=== PATIENT | female | born 1995 | race Caucasian/White ===

== ENCOUNTER 2024-06-16 07:12 | Emergency (ER) | payer OTHER, SELFPAY ==
[2024-06-16] VITALS (8 sets, daily range): BP systolic 119–155; BP diastolic 68–105; PULSE 61–91; TEMP 36.7–37.1; O2SAT 99–100; BMI 38.5
--- NOTE | 2024-06-16 07:44 | ECG_ITS ---
[facility] Test Date: 2024-06-16 Pat Name: SHARIF ALVARADO Department: Room: - Gender: Female Rigger Chief: : 1995 Requested By: [id number] Order Number: [id number] Reading MD: ALEJANDRO LI Measurements Intervals Frannie Rate: 79 P: 33 CO: 154 QRS: 76 QRSD: 90 T: 42 QT: 394 QTc: 428 Interpretive Statements 1100 Sinus rhythm 1102 Sinus arrhythmia 9110 normal ECG No previous ECG available for comparison Electronically Signed On 06-16-2024 20:22:19 EDT by ALEJANDRO LI
--- NOTE | 2024-06-16 07:45 | CT_ITS ---
The [address] [address] Patient Name: SHARIF ALVARADO MRN: [facility]:[id number] date: 1995 Sex: F Assigned Patient Location: ER Current Patient Location: .[facility] Accession/Order Number: [id number] Exam Date: 06/16/2024 08:20 Report Date: 06/16/2024 09:14 At the request of: HANNAH NAZARIO Procedure: CT head/brain wo con CT head/brain wo con, 06/16/2024 8:20 AM EDT INDICATION: dizziness COMPARISON: There is no appropriate prior study for comparison. TECHNIQUE: Axial CT images of the brain from skull base to vertex, including portions of the face and sinuses, were obtained without contrast . Multiplanar reformatted images were generated and reviewed as needed. Dose reduction techniques were achieved by using automated exposure control and/or adjustment of mA and/or kV according to patient size and/or use of iterative reconstruction technique. FINDINGS: The cerebral sulci as well as ventricular system are appropriate for age. There is no intracranial mass, mass effect, midline shift, intra or extra-axial fluid collection or hemorrhage. The visualized portions of orbits, mastoid air cells as well as paranasal sinuses are unremarkable. There is no suspicious osteolytic or osteoblastic lesion. CT/CT head/brain wo con IMPRESSION: No acute intracranial process is noted. Electronically authenticated by: CHRIS HUI Date: 06/16/2024 09:14
--- NOTE | 2024-06-16 07:49 | ED_ITS ---
HPI - Dizziness General Chief Complaint: Dizziness Stated Complaint: DIZZINESS Time Seen by Provider: 06/16/24 07:34 Source: patient Mode of arrival: ambulance Limitations: no limitations History of Present Illness HPI Narrative: 28-year-old male presents for dizziness. Intermittently for the last week she has been having 15 to 20-minute episodes of lightheadedness and sometimes spinning. Generally happens when she is sitting down. She has had no fever or vomiting or abdominal pain. No diarrhea. No new medications. She is never experienced symptoms like this before. She does not complain of an earache or sore throat or chest pain or palpitations. Related Data Home Medications ?Medication ?Instructions ?Recorded ?Confirmed escitalopram oxalate 20 mg tablet 20 mg PO .once daily 06/16/24 06/16/24 Previous Rx's ?Medication ?Instructions ?Recorded meclizine 25 mg tablet 25 mg PO TID PRN dizziness #20 tabs 06/16/24 ondansetron 4 mg disintegrating 4 mg PO Q6H PRN nausea and 06/16/24 tablet vomiting #20 tabs Allergies Allergy/AdvReac Type Severity Reaction Status Date / Time No Known Drug Allergies Allergy Verified 06/16/24 07:29 Review of Systems ROS Narrative A ten point review of systems is negative except as noted above. [facility] Medical History (Updated 06/16/24 @ 09:23 by Bacilio Bain MD) Anxiety ?F41.9 - Anxiety disorder, unspecified (ICD-10) Anxiety ?F41.9 - Anxiety disorder, unspecified (ICD-10) Social History Little interest or pleasure in doing things: not at all Feeling down, depressed, or hopeless: not at all Exam Narrative Exam Narrative: Nurses note and vital signs reviewed and patient is not hypoxic. General: The patient appears well and in no apparent distress. Patient is resting comfortably on cart. Skin: Warm, dry, no pallor noted. There is no rash noted. Head: Normocephalic, atraumatic Eye: Normal conjunctiva, no drainage, EOMI. PERRL Ears, Nose, Mouth, and Throat: oral mucosa is moist. Nares patent. Cardiovascular: Regular Rate and Rhythm Respiratory: Patient is in no distress, no accessory muscle use, lungs are clear to auscultation, no wheezing, rales or rhonchi Back: non-tender GI: Soft and nontender Musculoskeletal: The patient has no evidence of calf tenderness, no pitting edema, symmetrical pulses noted bilaterally Neurological: Awake alert and fully oriented. Upper and lower extremity strength intact and symmetric. Psychiatric: Cooperative Constitutional Vital Signs, click to edit/add: Last Vital Signs Temp 98.7 F 06/16/24 07:20 Pulse 67 06/16/24 08:38 Resp 12 06/16/24 08:13 BP 124/78 06/16/24 08:38 Pulse Ox 99 06/16/24 08:38 O2 Del Method Room Air 06/16/24 07:20 Course Vital Signs Vital signs: Vital Signs Temperature 98.7 F 06/16/24 07:20 Pulse Rate 91 H 06/16/24 07:20 Respiratory Rate 18 06/16/24 07:20 Blood Pressure 155/105 H 06/16/24 07:20 Pulse Oximetry 99 06/16/24 07:20 Oxygen Delivery Method Room Air 06/16/24 07:20 Temperature 98.7 F 06/16/24 07:20 Pulse Rate 67 06/16/24 08:38 Respiratory Rate 12 06/16/24 08:13 Blood Pressure 124/78 06/16/24 08:38 Pulse Oximetry 99 06/16/24 08:38 Oxygen Delivery Method Room Air 06/16/24 07:20 MDM - Dizziness MDM Narrative Medical decision making narrative: Her workup including blood work and CT brain is negative. Should be discharged home on Antivert and Zofran and will follow-up with her physician if symptoms persist. Treatment diagnosis and follow-up were discussed with the patient. Differential Diagnosis Differential diagnosis: Likely adverse reaction to drug, benign paroxysmal positional vertigo and other (Dehydration, anemia, ) Lab Data Attestation: I reviewed the patient's lab results. Labs: Lab Results 06/16/24 06/16/24 Range/Units 07:25 07:45 WBC 5.7 (4.0-11.0) 10^3/uL RBC 5.11 (4.20-5.40) 10^6/uL Hgb 13.6 (12.0-16.0) g/dL Hct 41.9 (36.0-48.0) % MCV 82.0 (81.0-99.0) fL MCH 26.6 L (26.7-34.0) pg MCHC 32.5 (29.9-35.2) g/dL RDW 12.7 (11.0-15.0) % Plt Count 249 (150-450) 10^3/uL MPV 10.6 (9.5-13.5) fL Neut % (Auto) 61.4 (43.0-75.0) % Lymph % (Auto) 29.0 (20.5-60.0) % [place] % (Auto) 7.6 (1.7-12.0) % Eos % (Auto) 1.4 (0.9-7.0) % Baso % (Auto) 0.4 (0.2-2.0) % Neut # (Auto) 3.5 (1.4-6.5) 10^3/uL Lymph # (Auto) 1.6 (1.2-3.8) 10^3/uL [place] # (Auto) 0.4 (0.3-0.8) 10^3/uL Eos # (Auto) 0.1 (0.0-0.7) 10^3/uL Baso # (Auto) 0.0 (0.0-0.1) 10^3/uL Abs Immat Gran (auto) 0.01 (0.00-0.03) 10^3/uL Imm/Tot Granulo (auto) 0.2 (0.0-0.5) % Sodium 140 (136-145) mmol/L Potassium 3.8 (3.5-5.1) mmol/L Chloride 105 (98-107) mmol/L Carbon Dioxide 24.2 (21.0-32.0) mmol/L Anion Gap 14.6 BUN 10.0 (7.0-18.0) mg/dL Creatinine 0.76 (0.55-1.02) mg/dL Est GFR ( Amer) >60 (>=60) Est GFR (Non-Af Amer) >60 (>=60) BUN/Creatinine Ratio 13.2 Glucose 96 (74-106) mg/dL Calcium 8.7 (8.5-10.1) mg/dL Serum HCG, Qual Negative (NEGATIVE) Urine Color Lt. yellow (YELLOW) Urine Clarity Clear (CLEAR) Urine pH 6.0 (5.0-9.0) Ur Specific [place] 1.020 (1.005-1.025) Urine Protein Negative (NEG/TRACE) mg/dL Urine Glucose (UA) Negative (NEGATIVE) mg/dL Urine Ketones Negative (NEGATIVE) mg/dL Urine Occult Blood Large A (NEGATIVE) Urine Nitrite Negative (NEGATIVE) Urine Bilirubin Negative (NEGATIVE) Urine Urobilinogen 0.2 (0.2-1.0) EU/dL Ur Leukocyte Esterase Trace A (NEGATIVE) Urine RBC 10-20 A (0-2) #/HPF Urine WBC 2-5 A (NONE SEEN) #/HPF Ur Squamous Epith Cells Moderate A (NONE/RARE) #/LPF Urine Crystals None seen (None Seen) #/HPF Urine Bacteria Small A (NONE SEEN) #/HPF Urine Casts None seen (NONE SEEN) #/LPF Urine Mucus Trace A (NONE SEEN) Ur Culture Indicated? Yes Imaging Data CT scan - head: Radiologist's impression: ITS Impressions Head CT 06/16/24 07:45 IMPRESSION: No acute intracranial process is noted. Electronically authenticated by: CHRIS HUI Date: 06/16/2024 09:14 ECG Data Attestation: I personally reviewed and interpreted this ECG as follows: (EKG on my interpretation shows normal sinus rhythm with rate of 79 and no acute change.) Discharge Plan Discharge Chief Complaint: Dizziness Clinical Impression: Dizziness Patient Disposition: Home, Self-Care Time of Disposition Decision: 09:23 Condition: Good Mode of Transportation: Private Vehicle Prescriptions / Home Meds: New ondansetron 4 mg tablet,disintegrating 4 mg PO Q6H PRN (Reason: nausea and vomiting) Qty: 20 0RF meclizine 25 mg tablet 25 mg PO TID PRN (Reason: dizziness) Qty: 20 0RF No Action escitalopram oxalate 20 mg tablet 20 mg PO .once daily Print Language: Romansh Instructions: Dizziness (ED) Referrals: Physician,Non-Staff, MD [Physician] - 1 week
[2024-06-16] MEDS: 0.9 % SODIUM CHLORIDE 1,000 ML 999 ML IV (07:55)
[2024-06-16 07:59] LABS: Basophils Percent Auto 0.4 % (0.2-2.0); Eosinophils Absolute Auto 0.1 10^3/uL (0.0-0.7); Eosinophils Percent Auto 1.4 % (0.9-7.0); Hematocrit 41.9 % (36.0-48.0); Hemoglobin 13.6 g/dL (12.0-16.0); Immature Granulocytes Abs Auto 0.01 10^3/uL (0.00-0.03); Immature Granulocytes Pct Auto 0.2 % (0.0-0.5); Lymphocytes Absolute Auto 1.6 10^3/uL (1.2-3.8); Mean Corpuscular HGB Conc 32.5 g/dL (29.9-35.2); Mean Corpuscular Hemoglobin 26.6 pg (26.7-34.0); Mean Platelet Volume 10.6 fL (9.5-13.5); Monocytes Absolute Auto 0.4 10^3/uL (0.3-0.8); Monocytes Percent Auto 7.6 % (1.7-12.0); Neutrophils Absolute Auto 3.5 10^3/uL (1.4-6.5); Neutrophils Percent Auto 61.4 % (43.0-75.0); Platelet Count 249 10^3/uL (150-450); Red Blood Count 5.11 10^6/uL (4.20-5.40); Red Cell Distribution Width 12.7 % (11.0-15.0); White Blood Count 5.7 10^3/uL (4.0-11.0)
[2024-06-16 07:59] LABS: Bilirubin Urine NEGATIVE (NEGATIVE); Blood Urine LARGE (NEGATIVE); Clarity Urine CLEAR (CLEAR); Color Urine LT. YELLOW (YELLOW); Glucose Urine UA NEGATIVE (NEGATIVE); Ketones Urine NEGATIVE (NEGATIVE); Leukocyte Esterase Urine TRACE (NEGATIVE); Nitrite Urine NEGATIVE (NEGATIVE); Protein Urine NEGATIVE (NEG/TRACE); Urobilinogen Urine 0.2 EU/dL (0.2-1.0)
[2024-06-16 08:04] LABS: Urine Microscopic Indicated YES
[2024-06-16 08:07] LABS: Bacteria Urine SMALL #/HPF (NONE SEEN); Cast Seen? NONE SEEN #/LPF (NONE SEEN); Crystals Seen? None Seen #/HPF (None Seen); Mucus Urine TRACE (NONE SEEN); Squamous Epithelial Cell Urine MODERATE #/LPF (NONE/RARE); Urine Culture Indicated YES
[2024-06-16 08:10] LABS: HCG Qualitative NEGATIVE (NEGATIVE); Internal Control Within Normal Limits
[2024-06-16 08:11] LABS: BUN Creatinine Ratio 13.2; Calcium 8.7 mg/dL (8.5-10.1); Chloride 105 mmol/L (98-107); Estimated GFR (African America >60 (>=60); Estimated GFR (Non-African Ame >60 (>=60); Glucose 96 mg/dL (74-106); Potassium 3.8 mmol/L (3.5-5.1); Sodium 140 mmol/L (136-145)
[2024-06-16 08:25] LABS: Anion Gap 14.6; Carbon Dioxide 24.2 mmol/L (21.0-32.0)
[2024-06-16] MEDS: ONDANSETRON PF 4 MG/2 ML VIAL IV (09:07)
== END 2024-06-16 09:29 | disposition home or self-care (01) ==
PROVIDERS: Emergency Provider Emergency Medicine
DX: R42 Dizziness and giddiness (principal)
CPT/HCPCS: 36415; 70450; 80048; 81001; 84703; 85025; 87086; 87150; 93005; 96361; 96374; 99285; J2405

== ENCOUNTER 2024-10-06 20:05 | Outpatient (REF) | payer OTHER, SELFPAY ==
--- OUTSIDE RECORDS SUMMARY | 2024-10-06 20:11 | XMS_ITS | CCD ---
Author Organization [facility] Care Team Providers Care [place] Name Role Phone DR EVE BARTON Primary Care Unavailable JONATHAN, DR LAWRENCE Consulting Unavailable JONATHAN, DR LAWRENCE Attending Unavailable JONATHAN, DR LAWRENCE Admitting Unavailable JONATHAN, DR LAWRENCE Admitting Unavailable JONATHAN, DR LAWRENCE Consulting Unavailable JONATHAN, DR LAWRENCE Attending Unavailable ALICE, DR SCHAEFER Primary Care Unavailable MISC, DR SOTOMAYOR Attending Unavailable MISC, DR SOTOMAYOR Admitting Unavailable MISC, DR SOTOMAYOR Consulting Unavailable HIGHLANDER, FAHAD Attending Unavailable REQUEST, DR RODRIGUEZ LISTED Primary Care Unavaila ble ZIEBER, DR PREETHI Lindquist Consulting Unavailable HIGHLANDER, FAHAD Admitting Unavailable HIGHLANDER, FAHAD Consulting Unavailable REQUEST, DR RODRIGEUZ LISTED Primary Care Unavaila ble JONATHAN, DR LAWRENCE Consulting Unavailable JONATHAN, DR LAWRENCE Attending Unavailable JONATHAN, DR LAWRENCE Admitting Unavailable ZIEBER, DR PREETHI Lindquist Consulting Unavailable JONATHAN, DR LAWRENCE Consulting Unavailable JONATHAN, DR LAWRENCE Attending Unavailable JONATHAN, DR LAWRENCE Primary Care Unavailable JONATHAN, DR LAWRENCE Admitting Unavailable Marin Bates Consulting Unavailable REQUEST, DR RODRIGUEZ LISTED Primary Care Unavaila ble JONATHAN, DR LAWRENCE Attending Unavailable JONATHAN, DR LAWRENCE Admitting Unavailable JONATHAN, DR LAWRENCE Primary Care Unavailable JONATHAN, DR LAWRENCE Consulting Unavailable JONATHAN, DR LAWRENCE Attending Unavailable JONATHAN, DR LAWRENCE Admitting Unavailable FAISAL LAMBERT Consulting Unavailable Mona Cueva Unavailable MD Eve Barton Primary Care Provider HARLAN Cueva Attending Provider Willie Jacobs Unavailable MD Eve Barton Primary Care Provider HARLAN Lebron Emergency Provider DO Willie Jacobs Primary Care Provider DO Willie Jacobs Attending Provider [phone] Syeda Maldonado Unavailable Autumn Carreon Unavailable DO Willie Jacobs Primary Care Provider GREG Carreon Attending Provider DO Willie Jacobs Attending Provider [phone] DO Thalia Brasher Primary Care Provider [phone] GREG Velasquez Attending Provider [phone] Willie Jacobs Primary Care Unavailable Autumn Carreon Admitting Unavailable Autumn Carreon Attending Unavailable Vahe Velasquez Admitting Unavailable Vahe Velasquez Attending Unavailable Thalia Brasher Primary Care Unavailable Willie Jacobs Admitting Unavailable Willie Jacobs Primary Care Unavailable Willie Jacobs Attending Unavailable ZION SALAZAR Attending Unavailable Eve Barton MD Primary Care Provider Medications Current Medications Medication Drug Class(es) Dates Sig (Normalized) Sig (Original) azithromycin 250 mg oral tablet (2 sources) Macrolide Antimicrobial Start: 08-20-2024 azithromycin (Zithromax) 250 MG tablet Indications: Acute bronchitis, unspecified organism Take 2 tabs (500 mg) by mouth today, than 1 tab (250 mg) daily for 4 days. 6 tablet 08/20/2024 Active benzonatate 100 mg oral capsule (2 sources) Non-narcotic Antitussive Start: 08-20-2024 take 1 capsule by mouth three times daily as needed for cough benzonatate (Tessalon Perles) 100 MG capsule Indications: Acute bronchitis, unspecified organism Take 1 capsule (100 mg) by mouth 3 (three) times a day as needed for cough Do not crush or chew. 21 capsule 08/20/2024 Active escitalopram 20 mg oral tablet (20 sources) Serotonin Reuptake Inhibitor Start: 04-27-2023 End: 04-14-2024 take 1 tablet by mouth in the morning escitalopram (Lexapro) 20 MG tablet Indications: Anxiety Take 1 tablet (20 mg) by mouth in the morning. 90 tablet 3 04/27/2023 Active Magnesium (6 sources) take 1 tablet by mouth once daily Magnesium 250 MG 1 tablet with a meal Orally Once a day Active naproxen 375 mg oral tablet (8 sources) Nonsteroidal Anti-inflammatory Drug Start: 12-04-2023 take 375 mg by mouth twice daily Naproxen Active 375 MG PO Twice daily December 04, 2023 1:00am nitrofurantoin, macrocrystals 25 mg / nitrofurantoin, monohydrate 75 mg oral capsule (1 source) Nitrofuran Antibacterial Start: 08-15-2022 take 1 capsule by mouth every twelve hours Macrobid 100 MG 1 capsule with food Orally every 12 hrs for 7 day(s) Jul, Active phentermine hydrochloride 15 mg oral capsule (7 sources) Sympathomimetic Amine Anorectic Start: 07-06-2023 take 1 capsule by mouth every twenty-four hours Phentermine HCl 15 MG 1 capsule Orally Once a day for 30 days Jun, Active Start: 05-27-2023 take 1 capsule by mo uth every twenty-four hours Phentermine HCl 15 MG 1 capsule Orally Once a day for 30 days Apr, Active Vitamin D3 (4 sources) Vitamin D3 Activ e Completed/Discontinued Medications Medication Drug Class(es) Dates Sig (Normalized) Sig (Original) amoxicillin 875 mg / clavulanate 125 mg oral tablet (8 sources) Penicillin-class Antibacterial Start: 02-01-2024 End: 03-28-2024 take 1 tablet by mouth twice daily Amoxicillin-Pot Clavulanate Discontinued 1 TAB PO Twice daily February 01, 2024 12:00am March 28, 2024 4:21pm 24 hr buPROPion hydrochloride 150 mg extended release oral tablet (5 sources) Aminoketone Start: 05-27-2024 End: 06-17-2024 take 1 tablet by mouth once daily in the morning Bupropion Hcl (Wellbutrin Xl) 150 mg tablet extended release 24 hr Discontinued 150 MG PO Every morning May 27, 2024 12:00am June 17, 2024 7:59am buPROPion HCl 10 0 MG Oral for 90 Not-Taking cholecalciferol 0.05 mg oral capsule (8 sources) Vitamin D Start: 12-04-2023 End: 03-28-2024 take 50 ug by mouth once daily Cholecalciferol (Vitamin D3) Discontinued 50 MCG PO Daily December 04, 2023 1:00am March 28, 2024 4:21pm 3 ml liraglutide 6 mg/ml pen injector (16 sources) GLP-1 Receptor Agonist Start: 12-04-2023 End: 02-01-2024 Liraglutide (Victoza 2-Marques) 0.6 mg/0.1 mL (18 mg/3 mL) pen injector Discontinued MG SUBCUT December 04, 2023 1:00am February 01, 2024 9:49am FreeTextSig: Week one- 0.6mg daily, Week two- 1.2mg daily, Week three thereafter- 1.8mg daily Subcutaneous Daily; Note: Source Status: Not-Taking\PRN; Refills: 1; Qty: 6 Milliliter; Provider: Velma Leyva Start: 05-25-2023 Victoza 18 MG/ 3ML Week one- 0.6mg daily, Week two- 1.2mg daily, Week three thereafter- 1.8mg daily Subcutaneous Daily for 30 days Apr, Not-Taking/PRN magnesium oxide 250 mg oral tablet (8 sources) Start: 12-04-2023 End: 02-01-2024 take 1 tablet by mouth once daily Magnesium Oxide Discontinued 250 MG PO Daily December 04, 2023 1:00am February 01, 2024 9:49am FreeTextSi tablet with a meal Orally Once a day; Note: Source Status: Taking; Provider: Velma Leyva ( ) 24 hr metFORMIN hydrochloride 500 mg extended release oral tablet (18 sources) Biguanide Start: 12-04-2023 End: 03-28-2024 take 2 tablets by mouth once daily Metformin Discontinued 500 MG PO Daily December 04, 2023 1:00am March 28, 2024 4:21pm FreeTextSi tablets with a meal Orally Once a day; Note: Source Status: Refill; Refills: 1; Provider: Velma Leyva Start: 04-27-2023 take 1 tablet by beth th every week at dinner, then take 2 tablets by mouth once daily metFORMIN HCl ER 500 MG 1 tablet with evening meal 1st week, then 2 tablets with a meal Orally Once a day for 30 days Mar, Active take 2 tablets by [facility] every twenty-four hours metFORMIN HCl ER 500 MG 2 tablets with a meal Orally Once a day for 90 days Responding to faxed request for 90 day supply Active nystatin [id number] unt/ml topical cream (10 sources) Polyene Antifungal Start: 03-28-2024 End: 05-27-2024 Nystatin Discontinued 1 APPLIC TOPICAL Three times daily 60 March 28, 2024 12:00am May 27, 2024 7:12am Start: 03-28-2024 End: 05-27-2024 Nystatin Discontinued 1 APPL IC TOPICAL Three times daily 60 March 28, 2024 12:00am May 27, 2024 7:12am PARoxetine hydrochloride 40 mg oral tablet (1 source) Serotonin Reuptake Inhibitor take 1 tablet by mouth once daily in the morning PARoxetine HCl 40 MG take 1 tablet by mouth every morning Oral for 30 Not-Taking promethazine hydrochloride 25 mg oral tablet (8 sources) Phenothiazine Start: 12-04-19 End: 05-27-20 take 25 mg by mouth twice daily Promethazine Discontinued 25 MG PO Twice daily December 04, 2023 1:00am May 27, 2024 7:13am topiramate 50 mg oral tablet (20 sources) Start: 12-04-19 End: 12-04-19 Topiramate Discontinued 50 MG PO December 04, 2023 1:00am December 04, 2023 10:57am FreeTextSig: Half tablet once daily for 7 days then increase to one tablet daily Orally Once a day; Note: Source Status: StartPlease dispense brand and amount as allowed by insurance.; Refills: 2; Qty: 30 Tablet; Provider: Velma Leyva Start: 12-04-2023 End: 02-01-2024 take 25 mg by mouth once daily Topiramate Discontinued 25 MG PO Daily December 04, 2023 1:00am December 04, 2023 10:57am Start: 08-17-2023 Topiramate 50 MG Half tablet once daily for 7 days then increase to one tablet daily Orally Once a day for 30 days Please dispense brand and amount as allowed by insurance. Jul, Active Start: 07-06-2023 take 1 capsule by [facility] every twenty-four hours Topiramate ER 25 MG 1 capsule Orally Once a day for 30 days Jun, Not-Taking/PRN Problems Active Problems Problem Classification Problem Date Documented Date Episodic/Chronic Acute bronchitis (2 sources) Acute bronchitis; Translations: [Acute bronchitis, unspecified] 08-20-2024 Episodic Anxiety disorders (20 sources) Anxiety disorder, unspecified; Translations: [Anxiety] Onset: 11-13-2020 Chronic Conditions associated with dizziness or vertigo (4 sources) Dizziness and giddiness; Translations: [Dizziness and giddiness] Onset: 06-17-2024 06-17-2024 Episodic Diabetes mellitus without complication (20 sources) Impaired fasting glycemia; Translations: [Impaired fasting glucose] Onset: 09-25-2023 Episodic Esophageal disorders (19 sources) Gastroesophageal reflux disease; Translations: [Gastro-esophageal reflux disease without esophagitis] Onset: 09-25-2023 Chronic Genitourinary symptoms and ill-defined conditions (1 source) Dysuria Episodic Headache; including migraine (20 sources) Migraine; Translations: [Migraine, unspecified, not intractable, without status migrainosus] Onset: 09-25-2023 Chronic Malaise and fatigue (19 sources) Fatigue; Translations: [Chronic fatigue, unspecified] Onset: 09-25-2023 Chronic Malaise and fatigue (4 sources) Other fatigue; Translations: [Other malaise and fatigue] Onset: 06-17-2024 06-17-2024 Episodic Menstrual disorders (5 sources) Excessive and frequent menstruation with regular cycle; Translations: [EXCESS FREQ MENSTRUATION W/REG CYCL] Onset: 11-07-2020 Chronic Mood disorders (20 sources) Major depressive disorder, single episode, unspecified; Translations: [Depression] Onset: 09-25-2023 Chronic Mycoses (9 sources) Candidiasis of skin; Translations: [Candidiasis of skin and nail] 03-28-2024 Episodic Other connective tissue disease (4 sources) Pain in right foot; Translations: [PAIN IN RIGHT FOOT] Onset: 05-09-2021 Episodic Other connective tissue disease (1 source) Pain in left foot; Translations: [PAIN IN LEFT FOOT] Onset: 05-27-2021 Episodic Other nutritional; endocrine; and metabolic disorders (13 sources) Body mass index 30+ - obesity; Translations: [Body mass index (BMI) 37.0-37.9, adult] Chronic Other nutritional; endocrine; and metabolic disorders (2 sources) Body mass index (BMI) 37.0-37.9, adult Chronic Other nutritional; endocrine; and metabolic disorders (11 sources) Obesity; Translations: [Obesity, unspecified] Chronic Other nutritional; endocrine; and metabolic disorders (6 sources) Obesity, unspecified; Translations: [Obesity, unspecified] Onset: 09-25-2023 Chronic Other skin disorders (10 sources) Acanthosis nigricans; Translations: [Acanthosis nigricans] Episodic Other upper respiratory infections (4 sources) Acute maxillary sinusitis, unspecified; Translations: [Acute maxillary sinusitis] 02-01-2024 Episodic Otitis media and related conditions (6 sources) Otitis media, unspecified, right ear; Translations: [Unspecified otitis media] 02-01-2024 Episodic Superficial injury; contusion (5 sources) Contusion of nose; Translations: [Contusion of nose, initial encounter] 01-26-2023 Episodic Unclassified (1 source) CONTACT W/AND (SUSP) EXPOS COVID-19; Translations: [CONTACT W/AND (SUSP) EXPOS COVID-19] Onset: 11-07-2020 Unclassified (7 sources) Well adult; Translations: [Healthy adult] 05-27-2024 Urinary tract infections (1 source) Acute cystitis with hematuria Episodic Past or Other Problems Problem Classification Problem Date Documented Date Episodic/Chronic Administrative/social admission (5 sources) Persons encountering health services in other specified circumstances; Translations: [Dietary counseling and surveillance] Onset: 09-25-2023 Episodic Coma; stupor; and brain damage (15 sources) Excessive daytime sleepiness - normal night sleep; Translations: [Somnolence] Onset: 09-25-2023 Episodic Contraceptive and procreative management (1 source) Tubal ligation status; Translations: [TUBAL LIGATION STATUS] Onset: 11-13-2020 Episodic Immunizations and screening for infectious disease (5 sources) Encounter for screening for human papillomavirus (HPV); Translations: [Contact with and (suspected) exposure to other viral communicable diseases] Onset: 07-02-2020 Episodic Other lower respiratory disease (1 source) Cough; Translations: [COUGH] Onset: 11-13-2020 Episodic Other lower respiratory disease (1 source) Wheezing; Translations: [WHEEZING] Onset: 11-07-2020 Episodic Other skin disorders (5 sources) Acanthosis nigricans; Translations: [Acanthosis nigricans] Onset: 09-25-2023 Episodic Results Test Name Value Interpretation Reference Range Facility Folate [Mass/volume] in Seru m or PlasmaOrdered By: Vahe Velasquez on 06-17-2024 Folate [Mass/Vol] ng/mL >5.9 [facility] Comment on above: Folate reference ran ge: >5.9 ng/mlThe WHO technical consultation on folate and vitamin [id number] has determined that folate concentrations lessthan 4 ng/ml are considered deficient. Iron [Mass/volume] in Serum or PlasmaOrdered By: Vahe Velasquez on 06-17-2024 Iron [Mass/Vol] 49 ug/dL Low 50-212 [facility] Comment on above: Order Comment: [email or web address] [email or web address] Performed By: #### V [id number], FE and TIBC, [id number], TSH3 wRFLX #### [facility] [address] Iron and TIBC Profileon 05-30 0-2023 % Iron Saturation 12.2 % Low 20-50 [facility] Comment on above: Order Comment: [email or web address] [email or web address] Performed By: #### V [id number], FE and TIBC, [id number], TSH3 wRFLX #### [facility] [address] [place] [address] [facility] Total Iron Binding Capacity 403 ug/dL Normal 255-450 [facility] Comment on above: Order Comment: [email or web address] [email or web address] Performed By: #### V [id number], FE and TIBC, [id number], TSH3 wRFLX #### [facility] [address] [place] [phone] [place] Iron binding capacity [Mass/ volume] in Serum or PlasmaOrdered By: Vahe Velasquez on 06-17-2024 Iron binding capacity [Mass/Vol] 403 ug/dL 255-450 [facility] Iron saturation [Mass Fracti on] in Serum or PlasmaOrdered By: Vahe Velasquez on 06-17-2024 Iron saturation [Mass fraction] 12.2 % Low 20-50 [facility] Thyroid Stim Hormone w/Rflxo n 06-17-2024 Thyroid Stim Hormone w/Rflx 1.18 u[iU]/mL Normal 0.45-5.33 [facility] Comment on above: Order Comment: [email or web address] [email or web address] Performed By: #### V [id number], FE and TIBC, [id number], TSH3 wRFLX #### [facility] [address] Thyrotropin [Units/volume] i n Serum or PlasmaOrdered By: Vahe Velasquez on 06-17-2024 TSH Qn 1.18 m[IU]/L 0.45-5.33 [facility] Transferrin [Mass/volume] in Serum or PlasmaOrdered By: Vahe Velasquez on 06-17-2024 Transferrin [Mass/Vol] 288 mg/dL 203-362 [facility] Comment on above: Order Comment: [email or web address] [email or web address] Performed By: #### V [id number], FE and TIBC, [id number], TSH3 wRFLX #### [facility] [address] [place] [address] Vit. B12/Folate Profileon Folate < 21.0 Normal >5.9 [facility] Comment on above: Order Comment: [email or web address] [email or web address] Result Comment: Madonna te reference range: >5.9 ng/ml The WHO technical consultation on folate and vitamin b12 deficiencies has determined that folate concentrations less than 4 ng/ml are considered deficient. Performed By: #### V [id number], FE and TIBC, [id number], TSH3 wRFLX #### [facility] [address] Vitamin B12 ser/plasOrdered By: Vahe Velasquez on 06-17-2024 Cobalamin (Vitamin B12) [Mass/Vol] 474 pg/mL 180-914 [facility] Comment on above: Order Comment: [email or web address] [email or web address] Performed By: #### V [id number], FE and TIBC, [id number], TSH3 wRFLX #### [facility] [address] [place] [address] [place] Vitamin D 25 Hydroxy Totalon 06-17-2024 Vitamin D 25 Hydroxy Total 22.6 ng/mL Low 30-100 [facility] Comment on above: Order Comment: [email or web address] Result Comment: ZOFIA MIN D STATUS 25(OH)VITAMIN D RANGE (ng/mL) Deficient <20 Insufficient 20 to <30 Sufficient 30 to 100 Reference: Ashley Plummer, Vernon SANTAMARIA et al. Evaluation,treatment, and prevention of vitamin D deficiency; an Endocrine Society clinical practice guideline. JCEM. 2010; 96(7):191-. PERFORMED BY: [place] [address] PATHOLOGIST SENIOR DATA INTEGRATION DEVELOPER VANESSA GUPTA M.D. Performed By: #### V [id number], FE and TIBC, [id number], TSH3 wRFLX #### [facility] [address] [place] [id number] [facility] Vitamin D+Metabolites [Mass/ volume] in Serum or PlasmaOrdered By: Vahe Velasquez on 06-17-2024 Vitamin D+Metabolites [Mass/Vol] 22.6 ng/mL Low 30-100 [facility] Comment on above: VITAMIN D STATUS 25( [place])VITAMIN D RANGE (ng/mL) Deficient <20 Insufficient 20 to <30Sufficient 30 to 100Reference: Ashley Plummer, Vernon SANTAMARIA et al. Evaluation,treatment, and prevention of vitamin D deficiency; an Endocrine Society clinical practice guideline. JCEM. 2010; 96(7):1911-. A1C with Estimated Average G luon 09-25-2023 Glucose [Mass/Vol] 97 mg/dL Normal [facility] Comment on above: Order Comment: Reaso n for Exam Obesity;IFG (impaired fasting glucose);Chronic fatigue;Anxie Result Comment: PERF ORMED BY: [address] [address] PATHOLOGIST SENIOR DATA INTEGRATION DEVELOPER VANESSA GUPTA M.D. Performed By: #### L IPID, B12, A1C WTH eA, CMP, [id number] #### [facility] [address] [place] [address] [place] Alanine aminotransferase [En zymatic activity/volume] in Serum or PlasmaOrdered By: Autumn Carreon on 09-25-2023 ALT [Catalytic activity/Vol] 27 U/L Normal 7-52 [facility] Comment on above: Order Comment: Reaso n for Exam Obesity;IFG (impaired fasting glucose);Chronic fatigue;Anxie Performed By: #### L IPID, B12, A1C WTH eA, CMP, [id number] #### [facility] [address] [place] [address] [place] Albumin [Mass/volume] in Ser um or Plasma by Bromocresol green (BCG) dye binding methoOrdered By: Autumn Carreon on 09-25-2023 Albumin BCG dye [Mass/Vol] 4.4 g/dL 3.5-5.7 [facility] Alkaline phosphatase [Enzyma tic activity/volume] in Serum or PlasmaOrdered By: Autumn Carreon on 09-25-2023 ALP [Catalytic activity/Vol] 84 U/L Normal 34-104 [facility] Comment on above: Order Comment: Reaso n for Exam Obesity;IFG (impaired fasting glucose);Chronic fatigue;Anxie Performed By: #### L IPID, B12, A1C WTH eA, CMP, [id number] #### [facility] [address] [place] [phone] [place] Aspartate aminotransferase [ Enzymatic activity/volume] in Serum or PlasmaOrdered By: Autumn Carreon on 09-25-2023 AST [Catalytic activity/Vol] 17 U/L Normal 13-39 [facility] Comment on above: Order Comment: Reaso n for Exam Obesity;IFG (impaired fasting glucose);Chronic fatigue;Anxie Performed By: #### L IPID, B12, A1C WTH eA, CMP, [id number] #### [facility] [address] [place] [phone] [place] Bilirubin.total [Mass/volume ] in Serum or PlasmaOrdered By: Autumn Carreon on 09-25-2023 Bilirubin [Mass/Vol] 0.4 mg/dL Normal 0.3-1.0 [facility] Comment on above: Order Comment: Reaso n for Exam Obesity;IFG (impaired fasting glucose);Chronic fatigue;Anxie Performed By: #### L IPID, B12, A1C WTH eA, CMP, [id number] #### [facility] [address] [place] [address] [place] Calcium [Mass/volume] in Ser um or PlasmaOrdered By: Autumn Carreon on 09-25-2023 Calcium [Mass/Vol] 9.1 mg/dL Normal 8.6-10.3 [facility] Comment on above: Order Comment: Reaso n for Exam Obesity;IFG (impaired fasting glucose);Chronic fatigue;Anxie Performed By: #### L IPID, B12, A1C WTH eA, CMP, [id number] #### [facility] [address] [place] [phone] [place] Carbon dioxide, total [Moles /volume] in Serum or PlasmaOrdered By: Autumn Carreon on 09-25-2023 CO2 [Moles/Vol] 24.4 mmol/L Normal 21.0-31.0 [facility] Comment on above: Order Comment: Reaso n for Exam Obesity;IFG (impaired fasting glucose);Chronic fatigue;Anxie Performed By: #### L IPID, B12, A1C WTH eA, CMP, [id number] #### [facility] [address] [place] [address] [place] Chloride [Moles/volume] in S beck or PlasmaOrdered By: Autumn Carreon on 09-25-2023 Chloride [Moles/Vol] 108 mmol/L High 98-107 [facility] Comment on above: Order Comment: Reaso n for Exam Obesity;IFG (impaired fasting glucose);Chronic fatigue;Anxie Performed By: #### L IPID, B12, A1C WTH eA, CMP, [id number] #### [facility] [address] [place] [address] [place] Cholesterol [Mass/volume] in Serum or PlasmaOrdered By: Autumn Carreon on 09-25-2023 Cholesterol [Mass/Vol] 213 mg/dL High 140-200 [facility] Comment on above: Chol less than 200 m g/dl low riskChol 201-239 mg/dl borderline riskChol 240 mg/dl and greater high risk Order Comment: Reaso n for Exam Obesity;IFG (impaired fasting glucose);Chronic fatigue;Anxie Result Comment: Chol less than 200 mg/dl low risk Chol 201-239 mg/dl borderline risk Chol 240 mg/dl and greater high risk Performed By: #### L IPID, B12, A1C WTH eA, CMP, [id number] #### [facility] [address] [place] [phone] [place] Cholesterol in LDL Calc [Mas s/Vol]Ordered By: Autumn Carreon on 09-25-2023 Cholesterol in LDL [Mass/Vol] 130 mg/dL 0-100 [facility] Comment on above: LDL ATP III CLASSIFI CATIONLDL less than 100 mg/dL OptimalLDL 100-129 mg/dL Near or above optimalLDL 130-159 mg/dL Borderline highLDL 160-189 mg/dL HighLDL greater than 189 mg/dL Very high Cholesterol in VLDL Calc [Ma ss/Vol]Ordered By: Autumn Carreon on 09-25-2023 Cholesterol in VLDL [Mass/Vol] 32 mg/dL [facility] Comprehensive Metabolic Pane khushboo 09-25-2023 Albumin [Mass/Vol] 4.4 g/dL Normal 3.5-5.7 [facility] Comment on above: Order Comment: Reaso n for Exam Obesity;IFG (impaired fasting glucose);Chronic fatigue;Anxie Performed By: #### L IPID, B12, A1C WTH eA, CMP, [id number] #### [facility] [address] [place] [phone] [place] GFR/1.73 sq M.predicted MDRD (S/P/Bld) [Vol rate/Area] mL/min/{1.73_m2} Normal [facility] Comment on above: Order Comment: Reaso n for Exam Obesity;IFG (impaired fasting glucose);Chronic fatigue;Anxie Performed By: #### L IPID, B12, A1C WTH eA, CMP, [id number] #### [facility] [address] [place] [phone] [place] Creatinine [Mass/volume] in Serum or PlasmaOrdered By: Autumn Velma on 09-25-2023 Creatinine [Mass/Vol] 0.78 mg/dL Normal 0.60-1.20 [facility] Comment on above: Order Comment: Sultana n for Exam Obesity;IFG (impaired fasting glucose);Chronic fatigue;Anxie Performed By: #### L IPID, B12, A1C WTH eA, CMP, [id number] #### [facility] [address] [place] [phone] [place] Glucose [Mass/volume] in Ser um or PlasmaOrdered By: Autumn Carreon on 09-25-2023 Glucose [Mass/Vol] 85 mg/dL Normal 70-100 [facility] Comment on above: ADA recommended refe rence rangeRandom Glucose Reference Range is dependent on time and content of last meal. Glucose of more than 200 mg/dL in a nonstressed, ambulatory subject supports the diagnosis of Diabetes Mellitus. Order Comment: Sultana n for Exam Obesity;IFG (impaired fasting glucose);Chronic fatigue;Anxie Result Comment: Bureau om Glucose Reference Range is dependent on time and content of last meal. Glucose of more than 200 mg/dL in a nonstressed, ambulatory subject supports the diagnosis of Diabetes Mellitus. ADA recommended reference range Performed By: #### L IPID, B12, A1C WTH eA, CMP, [id number] #### [facility] [address] [place] [address] [place] Glucose mean value [Mass/vol ume] in Blood Estimated from glycated hemoglobinOrdered By: Autumn Carreon on 09-25-2023 Average glucose Estimated from glycated hemoglobin (Bld) [Mass/Vol] 97 mg/dL [facility] Hemoglobin A1c percentageOrd ered By: Autumn Carreon on 09-25-2023 HbA1c (Bld) [Mass fraction] 5.0 % Normal 4.3-5.6 [facility] Comment on above: Increased risk for d iabetes: 5.7 - 6.4diabetes: >6.4glycemic control for adults with diabetes: <7.0 Order Comment: Sultana n for Exam Obesity;IFG (impaired fasting glucose);Chronic fatigue;Anxie Result Comment: Incr eased risk for diabetes: 5.7 - 6.4 diabetes: >6.4 glycemic control for adults with diabetes: <7.0 Performed By: #### L IPID, B12, A1C WTH eA, CMP, [id number] #### [facility] [address] [place] [id number] [facility] Lipid Panelon 09-25-2023 LDL Cholesterol,Calculated 130 mg/dL High 0-100 [facility] Comment on above: Order Comment: Reaso n for Exam Obesity;IFG (impaired fasting glucose);Chronic fatigue;Anxie Result Comment: LDL ATP III CLASSIFICATION LDL less than 100 mg/dL Optimal LDL 100-129 mg/dL Near or above optimal LDL 130-159 mg/dL Borderline high LDL 160-189 mg/dL High LDL greater than 189 mg/dL Very high Performed By: #### L IPID, B12, A1C WTH eA, CMP, [id number] #### [facility] [address] Triglyceride w/Reflex 162 mg/dL High 0-149 [facility] Comment on above: Order Comment: Reaso n for Exam Obesity;IFG (impaired fasting glucose);Chronic fatigue;Anxie Result Comment: TRIG ATP III CLASSIFICATION TRIG less than 150 mg/dL Normal TRIG 150-199 mg/dL Borderline high TRIG 200-500 mg/dL High TRIG greater than 500 mg/dL Very high Standard traceable to the Center for Disease Conrtrol and Prevention (CDC) test method. Performed By: #### L IPID, B12, A1C WTH eA, CMP, [id number] #### [facility] [address] [id number] [facility] VLDL CHOLESTEROL 32 mg/dL Normal [facility] Comment on above: Order Comment: Reaso n for Exam Obesity;IFG (impaired fasting glucose);Chronic fatigue;Anxie Performed By: #### L IPID, B12, A1C WTH eA, CMP, [id number] #### [facility] [address] [id number] [facility] No Panel InformationOrdered By: uAtumn Carroen on 09-25-2023 Estimated GFR (CKD-EPI) > 60.0 mL/Min [facility] Creatinine Clearance (Chem N/A [facility] Potassium [Moles/volume] in Serum or PlasmaOrdered By: Autumn Carreon on 09-25-2023 Potassium [Moles/Vol] 4.3 mmol/L Normal 3.5-5.1 [facility] Comment on above: Order Comment: Reaso n for Exam Obesity;IFG (impaired fasting glucose);Chronic fatigue;Anxie Performed By: #### L IPID, B12, A1C WTH eA, CMP, [id number] #### [facility] [address] Protein [Mass/volume] in Ser um or PlasmaOrdered By: Autumn Carreon on 09-25-2023 Protein [Mass/Vol] 7.4 g/dL Normal 6.4-8.9 [facility] Comment on above: Order Comment: Reaso n for Exam Obesity;IFG (impaired fasting glucose);Chronic fatigue;Anxie Performed By: #### L IPID, B12, A1C WTH eA, CMP, [id number] #### [facility] [address] Serum globulin measurement b y calculation (mass/volume)Ordered By: Autumn Carreon on 09-25-2023 Globulin (S) [Mass/Vol] 3.0 g/dL Normal [facility] Comment on above: Order Comment: Reaso n for Exam Obesity;IFG (impaired fasting glucose);Chronic fatigue;Anxie Performed By: #### L IPID, B12, A1C WTH eA, CMP, [id number] #### [facility] [address] Serum or plasma albumin/glob ulin mass ratioOrdered By: Autumn Carreon on 09-25-2023 Albumin/Globulin [Mass ratio] 1.5 {ratio} Normal [facility] Comment on above: Order Comment: Reaso n for Exam Obesity;IFG (impaired fasting glucose);Chronic fatigue;Anxie Performed By: #### L IPID, B12, A1C WTH eA, CMP, [id number] #### [facility] [address] Serum or plasma anion gap de terminationOrdered By: Autumn Carreon on 09-25-2023 Anion gap [Moles/Vol] 8.9 mmol/L Normal 6.0-15.0 [facility] Comment on above: Order Comment: Reaso n for Exam Obesity;IFG (impaired fasting glucose);Chronic fatigue;Anxie Performed By: #### L IPID, B12, A1C WTH eA, CMP, [id number] #### [facility] [address] Serum or plasma high density lipoprotein (HDL) cholesterol measurementOrdered By: Autumn Carreon on 09-25-2023 Cholesterol in HDL [Mass/Vol] 51 mg/dL Normal 23-92 [facility] Comment on above: HDL CHOL ATP-III CLA SSIFICATION Cardiovascular RiskHDL > or equal to 60 mg/dL LOWHDL < 40 mg/dL HIGH Order Comment: Manuelo n for Exam Obesity;IFG (impaired fasting glucose);Chronic fatigue;Anxie Result Comment: HDL CHOL ATP-III CLASSIFICATION Cardiovascular Risk HDL > or equal to 60 mg/dL LOW HDL < 40 mg/dL HIGH Performed By: #### L IPID, B12, A1C WTH eA, CMP, [id number] #### [facility] [address] Serum or plasma total choles terol/high density lipoprotein (HDL) cholesterol mass ratOrdered By: Autumn Carreon on 09-25-2023 Cholesterol.total/Brenda sterol in HDL [Mass ratio] 4.2 {ratio} Normal <5.0 [facility] Comment on above: Order Comment: Reaso n for Exam Obesity;IFG (impaired fasting glucose);Chronic fatigue;Anxie Performed By: #### L IPID, B12, A1C WTH eA, CMP, [id number] #### [facility] [address] [place] [id number] [facility] Sodium [Moles/volume] in Ser um or PlasmaOrdered By: Autumn Carreon on 09-25-2023 Sodium [Moles/Vol] 137 mmol/L Normal 136-145 [facility] Comment on above: Order Comment: Reaso n for Exam Obesity;IFG (impaired fasting glucose);Chronic fatigue;Anxie Performed By: #### L IPID, B12, A1C WTH eA, CMP, [id number] #### [facility] [address] Triglyceride [Mass/volume] i n Serum or PlasmaOrdered By: Autumn Ornelasanabelle on 09-25-2023 Triglyceride [Mass/Vol] 162 mg/dL 0-149 [facility] Comment on above: TRIG ATP III CLASSIF ICATIONTRIG less than 150 mg/dL NormalTRIG 150-199 mg/dL Borderline highTRIG 200-500 mg/dL High TRIG greater than 500 mg/dL Very highStandard traceable to the Center for Disease Conrtrol and Prevention (CDC) test method. Urea nitrogen [Mass/volume] in Serum or PlasmaOrdered By: Autumn anabelle on 09-25-2023 Urea nitrogen [Mass/Vol] 13 mg/dL Normal 7-25 [facility] Comment on above: Order Comment: Reaso n for Exam Obesity;IFG (impaired fasting glucose);Chronic fatigue;Anxie Performed By: #### L IPID, B12, A1C WTH eA, CMP, [id number] #### [facility] [address] Vitamin B12 ser/plasOrdered By: Autumn anabelle on 09-25-2023 Cobalamin (Vitamin B12) [Mass/Vol] 361 pg/mL Normal 180-914 [facility] Comment on above: Order Comment: Reaso n for Exam Obesity;IFG (impaired fasting glucose);Chronic fatigue;Anxie Performed By: #### L IPID, B12, A1C WTH eA, CMP, [id number] #### [facility] [address] [place] [id number] [facility] Vitamin D 25 Hydroxy Totalon 09-25-2023 Vitamin D 25 Hydroxy Total 31.7 ng/mL Normal 30-100 [facility] Comment on above: Order Comment: Reaso n for Exam Obesity;IFG (impaired fasting glucose);Chronic fatigue;Anxie Result Comment: ZOFIA MIN D STATUS 25(OH)VITAMIN D RANGE (ng/mL) Deficient <20 Insufficient 20 to <30 Sufficient 30 to 100 Reference: Jigar MF,Ashley NC, Vernon SANTAMARIA, et al. Evaluation,treatment, and prevention of vitamin D deficiency; an Endocrine Society clinical practice guideline. JCEM. 2010; 96(7):1911-30. PERFORMED BY: [facility] [address] [place] [address] PATHOLOGIST SENIOR DATA INTEGRATION DEVELOPER VANESSA GUPTA M.D. Performed By: #### L IPID, B12, A1C WTH eA, CMP, [id number] #### [facility] [address] Vitamin D+Metabolites [Mass/ volume] in Serum or PlasmaOrdered By: Autumn Carreon on 09-25-2023 Vitamin D+Metabolites [Mass/Vol] 31.7 ng/mL 30-100 [facility] Comment on above: VITAMIN D STATUS 25( [place])VITAMIN D RANGE (ng/mL) Deficient <20 Insufficient 20 to <30Sufficient 30 to 100Reference: Jigar MF,Ashley NC, Vernon SANTAMARIA, et al. Evaluation,treatment, and prevention of vitamin D deficiency; an Endocrine Society clinical practice guideline. JCEM. 2010; 96(7):1911-30. Alanine aminotransferase [En zymatic activity/volume] in Serum or PlasmaOrdered By: Willie Jacobs on 02-25-2023 ALT [Catalytic activity/Vol] 21 U/L 7-52 [facility] Albumin [Mass/volume] in Ser um or Plasma by Bromocresol green (BCG) dye binding methoOrdered By: Willie Jacobs on 02-25-2023 Albumin BCG dye [Mass/Vol] 4.3 g/dL 3.5-5.7 [facility] Alkaline phosphatase [Enzyma tic activity/volume] in Serum or PlasmaOrdered By: Willie Jacobs on 02-25-2023 ALP [Catalytic activity/Vol] 78 U/L 34-104 [facility] Aspartate aminotransferase [ Enzymatic activity/volume] in Serum or PlasmaOrdered By: Willie Jacobs on 02-25-2023 AST [Catalytic activity/Vol] 19 U/L 13-39 [facility] Bilirubin.total [Mass/volume ] in Serum or PlasmaOrdered By: Willie Jacobs on 02-25-2023 Bilirubin [Mass/Vol] 0.5 mg/dL 0.3-1.0 [facility] Calcium [Mass/volume] in Ser um or PlasmaOrdered By: Willie Jacobs on 02-25-2023 Calcium [Mass/Vol] 8.4 mg/dL 8.6-10.3 [facility] Carbon dioxide, total [Moles /volume] in Serum or PlasmaOrdered By: Willie Jacobs on 02-25-2023 CO2 [Moles/Vol] 25.2 mmol/L 21.0-31.0 [facility] Chloride [Moles/volume] in S beck or PlasmaOrdered By: Willie Jacobs on 02-25-2023 Chloride [Moles/Vol] 107 mmol/L 98-107 [facility] Creatinine [Mass/volume] in Serum or PlasmaOrdered By: Willie Jacobs on 02-25-2023 Creatinine [Mass/Vol] 0.66 mg/dL 0.60-1.20 [facility] Erythrocyte distribution wid th Auto (RBC) [Ratio]Ordered By: Willie Jacobs on 02-25-2023 Erythrocyte distribution width (RBC) [Ratio] 13.9 % 11.9-15.3 [facility] Globulin Calc (S) [Mass/Vol] Ordered By: Willie Jacobs on 02-25-2023 Globulin (S) [Mass/Vol] 2.6 g/dL [facility] Glucose [Mass/volume] in Ser um or PlasmaOrdered By: Willie Jacobs on 02-25-2023 Glucose [Mass/Vol] 86 mg/dL 70-100 [facility] Comment on above: ADA recommended refe rence rangeRandom Glucose Reference Range is dependent on time and content of last meal. Glucose of more than 200 mg/dL in a nonstressed, ambulatory subject supports the diagnosis of Diabetes Mellitus. Hematocrit Auto (Bld) [Volum e fraction]Ordered By: Willie Jacobs on 02-25-2023 Hematocrit (Bld) [Volume fraction] 39.3 % 34.0-46.4 [facility] Hemoglobin [Mass/volume] in BloodOrdered By: Willie Jacobs on 02-25-2023 Hemoglobin (Bld) [Mass/Vol] 13.2 g/dL 11.8-15.4 [facility] Leukocytes [#/volume] correc archie for nucleated erythrocytes in Blood by Automated counOrdered By: Willie Jacobs on 02-25-2023 WBC corrected for nucl RBC Auto (Bld) [#/Vol] 8.9 10*3/uL 3.8-11.6 [facility] MCH Auto (RBC) [Entitic mass ]Ordered By: Willie Jacobs on 02-25-2023 MCH (RBC) [Entitic mass] 26.7 pg 24.7-34.3 [facility] MCHC Auto (RBC) [Mass/Vol]Or dered By: Willie Jacobs on 02-25-2023 MCHC (RBC) [Mass/Vol] 33.5 g/dL 32.0-35.0 [facility] MCV Auto (RBC) [Entitic vol] Ordered By: Willie Jacobs on 02-25-2023 MCV (RBC) [Entitic vol] 79.7 fL 80-100 [facility] No Panel InformationOrdered By: Willie Jacobs on 02-25-2023 Estimated GFR (CKD-EPI) > 60.0 mL/Min [facility] Creatinine Clearance (Chem N/A [facility] Platelet mean volume Auto (B ld) [Entitic vol]Ordered By: Willie Jacobs on 02-25-2023 Platelet mean volume (Bld) [Entitic vol] 8.4 fL 6.3-10.7 [facility] Platelets Auto (Bld) [#/Vol] Ordered By: Willie Jacobs on 02-25-2023 Platelets (Bld) [#/Vol] 270 10*3/uL 150-450 [facility] Potassium [Moles/volume] in Serum or PlasmaOrdered By: Willie Jacobs on 02-25-2023 Potassium [Moles/Vol] 3.9 mmol/L 3.5-5.1 [facility] Protein [Mass/volume] in Ser um or PlasmaOrdered By: Willie Jacobs on 02-25-2023 Protein [Mass/Vol] 6.9 g/dL 6.4-8.9 [facility] RBC Auto (Bld) [#/Vol]Ordere d By: Willie Jacobs on 02-25-2023 RBC (Bld) [#/Vol] 4.93 10*6/uL 3.60-5.00 [facility] Serum or plasma albumin/glob ulin mass ratioOrdered By: Willie Jacobs on 02-25-2023 Albumin/Globulin [Mass ratio] 1.7 {ratio} [facility] Serum or plasma anion gap de terminationOrdered By: Willie Jacobs on 02-25-2023 Anion gap [Moles/Vol] 10.7 mmol/L 6.0-15.0 [facility] Sodium [Moles/volume] in Ser um or PlasmaOrdered By: Willie Jacobs on 02-25-2023 Sodium [Moles/Vol] 139 mmol/L 136-145 [facility] Thyrotropin [Units/volume] i n Serum or PlasmaOrdered By: Willie Jacobs on 02-25-2023 TSH Qn 2.36 m[IU]/L 0.45-5.33 [facility] Urea nitrogen [Mass/volume] in Serum or PlasmaOrdered By: Willie Jacobs on 02-25-2023 Urea nitrogen [Mass/Vol] 13 mg/dL 7- [facility] Urinalysis - AUTOMATEDon Appearance (U) cloudy [employer] Other Bilirubin Ql (U) Negative [employer] Other Color (U) yellow [employer] Other Glucose Ql (U) Negative [employer] Other Hemoglobin Ql (U) trace-intact [employer] Other Ketones Ql (U) Negative [employer] Other Leukocyte esterase Test strip Ql (U) large [employer] Other Nitrite Ql (U) Negative [employer] Other pH (U) 6.5 [pH] [employer] Other Protein Ql (U) 30mg [employer] Other Specific gravity (U) [Rel density] 1.020 [employer] Other Urobilinogen (U) [Mass/Vol] 0.2 mg/dL [employer] Other Urinalysis - AUTOMATED No rth [email or web address] Other XR FOOT FLORA MIN 3 VIEWSon XR FOOT FLORA MIN 3 VIEWS EXAMINATION: XR FOOT FLORA MIN 3 VIEWS HISTORY: Pain in both feet ; bilateral arch and heel pain, no known injury COMPARISON: No relevant comparison available. FINDINGS: RIGHT FINDINGS: BONES: No significant arthropathy or acute abnormality. Calcaneal plantar spur. SOFT TISSUES: No visible soft tissue swelling. OTHER: Negative. LEFT FINDINGS: BONES: No significant arthropathy or acute abnormality. Calcaneal plantar spur. SOFT TISSUES: No visible soft tissue swelling. OTHER: Negative. IMPRESSION: RIGHT CONCLUSION: Calcaneal plantar spur of uncertain clinical significance. Otherwise unremarkable foot. LEFT CONCLUSION: Calcaneal plantar spur of uncertain clinical significance. Otherwise unremarkable foot. Electronically authenticated by: PREETHI PIERCE Date: 2021-05-09 16:05 Normal [facility] Provider Letteron 05-03-2021 Provider Letter May 03, 2021 May 03, 2021 PRINCESS ALVARADO [address] [place] [id number] PRINCESS ALVARADO 1995 Dear Princess Alvarado, You missed your scheduled appointment on: 05/03/[address] Liang and the purpose of this letter is to inform you of our *No Show Policy*. Our appointment slots fill rapidly and when we have a no show appointment that time is lost. We could have used that time slot to care for a patient who needed to see one of our providers. Therefore, we ask that you call 24 hours in advance to cancel your appointment. This policy is in place so that we can meet the needs of all of our patients and we do appreciate your understanding. Sincerely, [facility] [address], [place] [address] Normal [facility] CBC AUTO DIFFon 11-09-2020 BASO # 0.0 103/ul Normal 0.0-0.1 [facility] Comment on above: Performed By: #### C BC #### [facility] [address] [id number] Elaine Sonja Basophils/100 WBC (Bld) 0.6 % Normal 0.2-2.0 [facility] Comment on above: Performed By: #### C BC #### [facility] [address] [place], [place] [id number] Elaine Sonja EO # 0.2 103/ul Normal 0.0-0.7 [facility] Comment on above: Performed By: #### C BC #### [facility] [address] [place], [place] [id number] Elaine Sonja Eosinophils/100 WBC (Bld) 3.2 % Normal 0.9-7.0 [facility] Comment on above: Performed By: #### C BC #### [facility] [address] [place] [address] Elaine Sonja Erythrocyte distribution width (RBC) [Ratio] 14.6 % Normal 11.0-15.0 [facility] Comment on above: Performed By: #### C BC #### [facility] [address] [place], [place] [id number] Elaine Sonja Hematocrit (Bld) [Volume fraction] 39.1 % Normal 36.0-48.0 [facility] Comment on above: Performed By: #### C BC #### [facility] [address] [place], [place] [id number] Elaine Sonja Hemoglobin (Bld) [Mass/Vol] 12.1 g/dL Normal 12.0-16.0 [facility] Comment on above: Performed By: #### C BC #### [facility] [address] [place] [address] Elaine Sonja IG # 0.01 10e3/ul Normal 0.00-0.03 [facility] Comment on above: Performed By: #### C BC #### [facility] [address] [place], [place] [id number] Elaine Sonja IG % 0.2 % Normal 0.0-0.5 [facility] Comment on above: Performed By: #### C BC #### [facility] [address] [place] [address] Elaine Sonja LYMPH # 1.5 103/ul Normal 1.2-3.8 [facility] Comment on above: Performed By: #### C BC #### [facility] [address] [place], [place] [id number] Elaine Sonja Lymphocytes/100 WBC (Bld) 31.2 % Normal 20.5-60.0 [facility] Comment on above: Performed By: #### C BC #### [facility] [address] [place], [place] [id number] Elaine Sonja MANUAL DIFF REQ NO Normal [facility] Comment on above: Performed By: #### C BC #### [facility] [address] [place], [place] [id number] Elaine Sonja MCH (RBC) [Entitic mass] 24.2 pg Critically low 26.7-34.0 [facility] Comment on above: Performed By: #### C BC #### [facility] [address] [place] [address] Elaine Sonja MCHC (RBC) [Mass/Vol] 30.9 g/dL Normal 29.9-35.2 [facility] Comment on above: Performed By: #### C BC #### [facility] [address] [place], [place] [id number] Elaine Sonja MCV (RBC) [Entitic vol] 78.0 fL Critically low 81.0-99. 0 [facility] Comment on above: Performed By: #### C BC #### [facility] [address] [place] [address] Elaine Sonja MONO # 0.4 103/ul Normal 0.3-0.8 [facility] Comment on above: Performed By: #### C BC #### [facility] [address] [place], [place] [id number] Elaine Sonja Monocytes/100 WBC (Bld) 7.7 % Normal 1.7-12.0 [facility] Comment on above: Performed By: #### C BC #### [facility] [address] [place], [place] [id number] Elaine Sonja NEUT # 2.8 103/ul Normal 1.4-6.5 [facility] Comment on above: Performed By: #### C BC #### [facility] [address] [place] [address] Elaine Casillas Neutrophils/100 WBC (Bld) 57.1 % Normal 43.0-75.0 [facility] Comment on above: Performed By: #### C BC #### [facility] [address] [place] [address] Elaine Casillas Platelet mean volume (Bld) [Entitic vol] 10.1 fL Normal 9.5-13.5 [facility] Comment on above: Performed By: #### C BC #### [facility] [address] [place] [address] Elaine Casillas PLT 263 103/ul Normal 150-450 [facility] Comment on above: Performed By: #### C BC #### [facility] [address] [place] [address] Elaine Casillas RBC 5.01 106/ul Normal 4.20-5.40 [facility] Comment on above: Performed By: #### C BC #### [facility] [address] [place] [address] Elaine Casillas WBC 4.9 103/ul Normal 4.0-11.0 [facility] Comment on above: Performed By: #### C BC #### [facility] [address] [place] [address] Elaine Casillas PREG QUANT HCGon 11-09-2020 HCG QUANT <1 Normal [facility] Comment on above: Performed By: #### C BC #### [facility] [address] [place] [address] Elainevinayak Casillas HCG RANGE SEE BELOW Normal [facility] Comment on above: Result Comment: 5-50 0-1 WEEK 40-300 1-2 WEEKS 100-1,000 2-3 WEEKS 500-6,000 3-4 WEEKS 5,000-200,000 1-2 MONTHS 10,000-100,000 2-3 MONTHS 3,000-50,000 2ND TRIMESTER 1,000-50,000 3RD TRIMESTER Performed By: #### C BC #### [facility] [address] [place], [place] [address] Elaine Casillas Consultation Noteon 11-05-19 21 Consultation Note [id number] Normal [facility] Covid-19 PCR (CVDTBH)on EUA Statement SEE BELOW Normal [facility] Comment on above: Result Comment: This test is not yet approved or cleared by the [place] FDA. When there are no FDA-approved or cleared tests available, and other criteria are met, FDA can make tests available under an emergency access mechanism called an Emergency Use Authorization (EUA). The EUA for this test is supported by the [place] of Health and Human Service?s (HHS?s) declaration that circumstances exist to justify the emergency use of in vitro diagnostics for the detection and/or diagnosis of the virus that causes COVID-19. This EUA will remain in effect (meaning this test can be used) for the duration of the COVID-19 declaration justifying emergency of IVDs, unless it is terminated or revoked by FDA (after which the test may no longer be used). When diagnostic testing is negative, the possibility of a false negative should be considered in the context of a patients recent exposures and the presence of clinical signs and symptoms consistent with SARS-CoV-2. Performed By: #### C #### [facility] [address] [place], [place] [address] Elaine Casillas SARS-CoV-2 (COVID-19) RNA SHERYL+probe Ql (Unsp spec) Not detected Normal NOT DETECTED [facility] Comment on above: Result Comment: This test is not yet approved or cleared by the [place] FDA. When there are no FDA-approved or cleared tests available, and other criteria are met, FDA can make tests available under an emergency access mechanism called an Emergency Use Authorization (EUA). The EUA for this test is supported by the [employer] System Engineer of Health and Human Service's (HHS's) declaration that circumstances exist to justify the emergency use of in vitro diagnostics for the detection and/or diagnosis of the virus that causes COVID-19. This EUA will remain in effect (meaning this test can be used) for the duration of the COVID-19 declaration justifying emergency of IVDs, unless it is terminated or revoked by FDA (after which the test may no longer be used). Performed By: #### C #### [facility] [address] [place], [place] [address] Elaine Casillas XR CHEST 2 Von 11-02-2020 XR CHEST 2 V Frontal and lateral chest. Clinical: Cough. COMPARISON: None. Heart and vascularity are unremarkable. Lungs are expanded and free of focal infiltrates. No acute bony abnormality is appreciated. IMPRESSION: No acute heart or lung disease identified. Electronically authenticated by: MARIN BATES Date: 2020-11-02 08:48 Normal [facility] Formson 10-31-2020 Forms [id number] Normal [facility] Ambulatory Clinical Summaryo n 10-29-2020 Ambulatory Clinical Summary {[id number] Normal [facility] Patient Educationon 10-29-19 21 Patient Education Obstetrics and Gynecology Overactive Bladder, Adult Overactive bladder refers to a condition in which a person has a sudden need to pass urine. The person may leak urine if he or she cannot get to the bathroom fast enough (urinary incontinence). A person with this condition may also wake up several times in the night to go to the bathroom. Overactive bladder is associated with poor nerve signals between your bladder and your brain. Your bladder may get the signal to empty before it is full. You may also have very sensitive muscles that make your bladder squeeze too soon. These symptoms might interfere with daily work or social activities. What are the causes? This condition may be associated with or caused by: ? Urinary tract infection. ? Infection of nearby tissues, such as the prostate. ? Prostate enlargement. ? Surgery on the uterus or urethra. ? Bladder stones, inflammation, or tumors. ? Drinking too much caffeine or alcohol. ? Certain medicines, especially medicines that get rid of extra fluid in the body (diuretics). ? Muscle or nerve weakness, especially from: ? A spinal cord injury. ? Stroke. ? Multiple sclerosis. ? Parkinson's disease. ? Diabetes. ? Constipation. What increases the risk? You may be at greater risk for overactive bladder if you: ? Are an older adult. ? Smoke. ? Are going through menopause. ? Have prostate problems. ? Have a neurological disease, such as stroke, dementia, Parkinson's disease, or multiple sclerosis (MS). ? Eat or drink things that irritate the bladder. These include alcohol, spicy food, and caffeine. ? Are overweight or obese. What are the signs or symptoms? Symptoms of this condition include: ? Sudden, strong urge to urinate. ? Leaking urine. ? Urinating 8 or more times a day. ? Waking up to urinate 2 or more times a night. How is this diagnosed? Your health care provider may suspect overactive bladder based on your symptoms. He or she will diagnose this condition by: ? A physical exam and medical history. ? Blood or urine tests. You might need bladder or urine tests to help determine what is causing your overactive bladder. You might also need to see a health care provider who specializes in urinary tract problems (urologist). How is this treated? Treatment for overactive bladder depends on the cause of your condition and whether it is mild or severe. You can also make lifestyle changes at home. Options include: ? Bladder training. This may include: ? Learning to control the urge to urinate by following a schedule that directs you to urinate at regular intervals (timed voiding). ? Doing Kegel exercises to strengthen your pelvic floor muscles, which support your bladder. Toning these muscles can help you control urination, even if your bladder muscles are overactive. ? Special devices. This may include: ? Biofeedback, which uses sensors to help you become aware of your body's signals. ? Electrical stimulation, which uses electrodes placed inside the body (implanted) or outside the body. These electrodes send gentle pulses of electricity to strengthen the nerves or muscles that control the bladder. ? Women may use a plastic device that fits into the vagina and supports the bladder (pessary). ? Medicines. ? Antibiotics to treat bladder infection. ? Antispasmodics to stop the bladder from releasing urine at the wrong time. ? Tricyclic antidepressants to relax bladder muscles. ? Injections of botulinum toxin type A directly into the bladder tissue to relax bladder muscles. ? Lifestyle changes. This may include: ? Weight loss. Talk to your health care provider about weight loss methods that would work best for you. ? Diet changes. This may include reducing how much alcohol and caffeine you consume, or drinking fluids at different times of the day. ? Not smoking. Do not use any products that contain nicotine or tobacco, such as cigarettes and e-cigarettes. If you need help quitting, ask your health care provider. ? Surgery. ? A device may be implanted to help manage the nerve signals that control urination. ? An electrode may be implanted to stimulate electrical signals in the bladder. ? A procedure may be done to change the shape of the bladder. This is done only in very severe cases. Follow these instructions at home: Lifestyle ? Make any diet or lifestyle changes that are recommended by your health care provider. These may include: ? Drinking less fluid or drinking fluids at different times of the day. ? Cutting down on caffeine or alcohol. ? Doing Kegel exercises. ? Losing weight if needed. ? Eating a healthy and balanced diet to prevent constipation. This may include: ? Eating foods that are high in fiber, such as fresh fruits and vegetables, whole grains, and beans. ? Limiting foods that are high in fat and processed sugars, such as fried and sweet foods. General instructions ? Take ove (more content not included)... Normal [facility] Provider Letteron 10-29-2020 Provider Letter October 29, 2020 [address] [place] [address] PRINCESS ALVARADO 1995 To Whom It May Concern, Please excuse above patient from work. Princess was at an 11:00am doctor appt. May Return to Work On: 10/29/20 Restrictions: none Comments: _ Sincerely, Dr Faith's multisensor intelligence officer Urology [address], [place] [address] [facility] CBC AUTO DIFFon 10-27-2020 BASO # 0.1 103/ul Normal 0.0-0.1 [facility] Comment on above: Performed By: #### C BC #### [facility] [address] [place] [address] Elaine Casillas Basophils/100 WBC (Bld) 0.9 % Normal 0.2-2.0 [facility] Comment on above: Performed By: #### C BC #### [facility] [address] [place] [address] Elaine Sonja EO # 0.5 103/ul Normal 0.0-0.7 [facility] Comment on above: Performed By: #### C BC #### [facility] [address] [place], [place] [id number] Elaine Sonja Eosinophils/100 WBC (Bld) 5.6 % Normal 0.9-7.0 [facility] Comment on above: Performed By: #### C BC #### [facility] [address] [place] [address] Elaine Sonja Erythrocyte distribution width (RBC) [Ratio] 14.3 % Normal 11.0-15.0 [facility] Comment on above: Performed By: #### C BC #### [facility] [address] [place] [address] Elaine Sonja Hematocrit (Bld) [Volume fraction] 41.5 % Normal 36.0-48.0 [facility] Comment on above: Performed By: #### C BC #### [facility] [address] [place] [address] Elaine Sonja Hemoglobin (Bld) [Mass/Vol] 12.9 g/dL Normal 12.0-16.0 [facility] Comment on above: Performed By: #### C BC #### [facility] [address] [place] [address] Elaine Sonja IG # 0.03 10e3/ul Normal 0.00-0.03 [facility] Comment on above: Performed By: #### C BC #### [facility] [address] [place] [address] Elaine Sonja IG % 0.4 % Normal 0.0-0.5 [facility] Comment on above: Performed By: #### C BC #### [facility] [address] [place] [address] Elaine Sonja LYMPH # 2.0 103/ul Normal 1.2-3.8 [facility] Comment on above: Performed By: #### C BC #### [facility] [address] [place] [id number] Elaine Sonja Lymphocytes/100 WBC (Bld) 23.1 % Normal 20.5-60.0 [facility] Comment on above: Performed By: #### C BC #### [facility] [address] [place], [place] [id number] Elaine Sonja MANUAL DIFF REQ NO Normal [facility] Comment on above: Performed By: #### C BC #### [facility] [address] [place], [place] [id number] Elaine Sonja MCH (RBC) [Entitic mass] 24.2 pg Critically low 26.7-34.0 [facility] Comment on above: Performed By: #### C BC #### [facility] [address] [place] [address] Elaine Sonja MCHC (RBC) [Mass/Vol] 31.1 g/dL Normal 29.9-35.2 [facility] Comment on above: Performed By: #### C BC #### [facility] [address] [place], [place] [id number] Elaine Sonja MCV (RBC) [Entitic vol] 77.7 fL Critically low 81.0-99. 0 [facility] Comment on above: Performed By: #### C BC #### [facility] [address] [place], [place] [id number] Elaine Sonja MONO # 0.6 103/ul Normal 0.3-0.8 [facility] Comment on above: Performed By: #### C BC #### [facility] [address] [place], [place] [id number] Elaine Sonja Monocytes/100 WBC (Bld) 6.9 % Normal 1.7-12.0 [facility] Comment on above: Performed By: #### C BC #### [facility] [address] [place], [place] [id number] Elaine Sonja NEUT # 5.4 103/ul Normal 1.4-6.5 [facility] Comment on above: Performed By: #### C BC #### [facility] [address] [id number] Elaine Sonja Neutrophils/100 WBC (Bld) 63.1 % Normal 43.0-75.0 [facility] Comment on above: Performed By: #### C BC #### [facility] [address] [id number] Elainevinayak Casillas Platelet mean volume (Bld) [Entitic vol] 10.1 fL Normal 9.5-13.5 [facility] Comment on above: Performed By: #### C BC #### [facility] [address] [id number] Elaine Sonja PLT 345 103/ul Normal 150-450 [facility] Comment on above: Performed By: #### C BC #### [facility] [address] [place] [address] Elaine Sonja RBC 5.34 106/ul Normal 4.20-5.40 [facility] Comment on above: Performed By: #### C BC #### [facility] [address] [place] [address] Elaine Sonja WBC 8.6 103/ul Normal 4.0-11.0 [facility] Comment on above: Performed By: #### C BC #### [facility] [address] [place], [place] [id number] Elaine Sonja PREG QUANT HCGon 10-27-2020 HCG QUANT <1 Normal [facility] Comment on above: Performed By: #### P REGQNT, TSH #### [facility] [address] [place], [place] [id number] Elaine Sonja HCG RANGE SEE BELOW Normal [facility] Comment on above: Result Comment: 5-50 0-1 WEEK 40-300 1-2 WEEKS 100-1,000 2-3 WEEKS 500-6,000 3-4 WEEKS 5,000-200,000 1-2 MONTHS 10,000-100,000 2-3 MONTHS 3,000-50,000 2ND TRIMESTER 1,000-50,000 3RD TRIMESTER Performed By: #### P REGQNT, TSH #### [facility] [address] [place], [place] [id number] Elaine Sonja PROTIMEon 10-27-2020 INR Coag (PPP) [Relative time] {INR} Normal [facility] Comment on above: Performed By: #### P T, PTT #### [facility] [address] [place] [address] Elaine Casillas INR GUIDELINES SEE BELOW Normal [facility] Comment on above: Result Comment: JOSE RED INR: 2.0 - 3.0 CONDITIONS NOT LISTED BELOW 2.5 - 3.5 FOR PROSTHETIC HEART VALVE REPLACEMENT 2.5 - 3.5 RECURRENT THROMBOSIS Performed By: #### P T, PTT #### [facility] [address] [place] [address] Elaine Casillas PT Coag (PPP) [Time] 10.1 s Normal 9.0-11.6 [facility] Comment on above: Performed By: #### P T, PTT #### [facility] [address] [place] [address] Elaine Casillas PTTon 10-27-2020 aPTT Coag (Bld) [Time] 28.2 s Normal 22.3-36.2 [facility] Comment on above: Performed By: #### P T, PTT #### [facility] [address] [place] [address] Elaine Casillas TSHon 10-27-2020 TSH 1.983 uIU/mL Normal 0.470-4.680 [facility] [place] [facility] Comment on above: Performed By: #### P REGQNT, TSH #### [facility] [address] [place] [address] Elaine Casillas TSH RANGE SEE BELOW Normal [facility] Comment on above: Result Comment: <0.3 4 UIU/ml HYPERTHYROID 0.34-5.60 UIU/ml EUTHYROID >5.60 UIU/ml HYPOTHYROID Performed By: #### P REGQNT, TSH #### [facility] [address] [place] [address] Elaine Casillas US PELVIS AND TRANSVAGon US PELVIS AND TRANSVAG EXAMINATION: US PELVIS AND TRANSVAG HISTORY: Excessive and frequent menstruation COMPARISON: No relevant comparison available. TECHNIQUE: Transabdominal and transvaginal sonographic examination. FINDINGS: UTERUS: Normal size and appearance. Uterus size: 8.5 x 4.8 x 3.8 cm ENDOMETRIUM: Normal homogeneous appearance. Endometrial thickness: 10 mm RIGHT OVARY: Normal size and appearance. Duplex Doppler demonstrates normal waveform and flow; resistive index 0.6 Ovary size: 2.5 x 2.8 x 2.5 cm LEFT OVARY: Contains a 1.9 cm cyst favoring benign etiology. Duplex Doppler demonstrates normal waveform and flow; resistive index 0.6 Ovary size: 3.3 x 2.7 x 2.4 cm CUL-DE-SAC: Unremarkable. No significant free fluid. BLADDER: Unremarkable. OTHER: None. IMPRESSION: 1. Unremarkable uterus and endometrium. No suspicious findings to account for the patient's symptoms. Electronically authenticated by: PREETHI PIERCE Date: 2020-10-27 15:39 Normal [facility] PAP ACOG PANEL 2: 19 to 27on 10-02-2020 . . Normal [facility] Comment on above: Performed By: #### [id number] #### [facility] [address] [place] [address] Elaine Casillas Age Gdln ACOG Testing 21-29 Normal [facility] Comment on above: Performed By: #### [id number] #### [facility] [address] [place] [address] Elaine Casillas DIAGNOSIS: Comment Normal [facility] Comment on above: Result Comment: NEGA TIVE FOR INTRAEPITHELIAL LESION OR MALIGNANCY. THIS SPECIMEN WAS RESCREENED PART OF OUR FINANCIAL LEGAL ASSISTANT PROGRAM. Performed By: #### 4 [id number] #### [facility] [address] [place] [address] Elaine Casillas Methodology: BDFP Normal [facility] Comment on above: Result Comment: The [facility](R) [employer] was unable to read and evaluate this specimen. Therefore a manual review was performed. Performed By: #### [id number] #### [facility] [address] [place] [address] Elaine Casillas Note: Comment Normal [facility] Comment on above: Result Comment: The Pap smear is a screening test designed to aid in the detection of premalignant and malignant conditions of the uterine cervix. It is not a diagnostic procedure and should not be used as the sole means of detecting cervical cancer. Both false-positive and false-negative reports do occur. . Performed By: #### [id number] #### [facility] [address] [place] [address] Performed by: Comment Normal [facility] [place] [facility] Comment on above: Result Comment: Alfred Saucedo, Stencil Inspector Performed By: #### [id number] #### [facility] [address] [place] [address] QC reviewed by: Comment Normal [facility] Comment on above: Result Comment: Angelica Triplett, Supervisory Stencil Inspector (ASCP) Performed By: #### [id number] #### [facility] [address] [place] [address] Reflex Criteria: Comment Normal [facility] Comment on above: Result Comment: The HPV DNA reflex criteria were not met with this specimen result therefore, no HPV testing was performed. . Performed By: #### 4 [id number] #### [facility] [address] [place] [address] Specimen adequacy: Comment Normal [facility] Comment on above: Result Comment: Sati sfactory for evaluation. Endocervical and/or squamous metaplastic cells (endocervical component) are present. Performed By: #### 4 [id number] #### [facility] [address] [place] [address] COVID-19 PCRon 07-04-2020 SARS-CoV-2 (COVID-19) RNA SHERYL+probe Ql (Unsp spec) Not detected Normal Not Detected [facility] Comment on above: Result Comment: This nucleic acid amplification test was developed and its performance characteristics determined by [employer]. Nucleic acid amplification tests include PCR and TMA. This test has not been FDA cleared or approved. This test has been authorized by FDA under an Emergency Use Authorization (EUA). This test is only authorized for the duration of time the declaration that circumstances exist justifying the authorization of the emergency use of in vitro diagnostic tests for detection of SARS-CoV-2 virus and/or diagnosis of COVID-19 infection under section 564(b)(1) of the Act, 21 U.S.C. 360bbb-3(b) (1), unless the authorization is terminated or revoked sooner. When diagnostic testing is negative, the possibility of a false negative result should be considered in the context of a patient's recent exposures and the presence of clinical signs and symptoms consistent with COVID-19. An individual without symptoms of COVID-19 and who is not shedding SARS-CoV-2 virus would expect to have a negative (not detected) result in this assay. Performed By: #### C VDPCR #### [facility] [address] [place] [address] Elaine Casillas Vital Signs Date Time Vital Sign Value Performing Clinician Facility 08-20-2024 09:18-0500 Body mass index (BMI) [Ratio] 38.36 kg/m2 Zionmike Perezok [employer] Work Phone: [facility] 08-20-2024 09:18-0500 Body temperature 97.81 [degF] Zionmike TovarMarie [employer] Work Phone: [facility] 08-20-2024 09:18-0500 Body weight 111.1 kg Zionmike Perezok [employer] Work Phone: [facility] 08-20-2024 09:18-0500 Diastolic blood pressure 88 mm[Hg] Zionmike TovarJenkintown [employer] Work Phone: [facility] 08-20-2024 09:18-0500 Heart rate 126 /min Zionmike TovarJenkintown [employer] Work Phone: [facility] 08-20-2024 09:18-0500 SaO2% (BldA) [Mass fraction] 96 % Zionmike Perezok [employer] Work Phone: [facility] 08-20-2024 09:18-0500 Systolic blood pressure 122 mm[Hg] Zionmike TovarMarie [employer] Work Phone: [facility] 07-08-2024 06:43-0400 Body height 168.91 cm DO Thalia Schwerer Work Phone: [facility] 07-08-2024 06:43-0400 Body mass index (BMI) [Ratio] 40.2 kg/m2 DO Thalia Schwerer Work Phone: [facility] 07-08-2024 06:43-0400 Body temperature 97.9 [degF] DO Thalia Schwerer Work Phone: [facility] 07-08-2024 06:43-0400 Body weight 114.84 kg DO Thalia Schwerer Work Phone: [facility] 07-08-2024 06:43-0400 Diastolic blood pressure 88 mm[Hg] DO Thalia Schwerer Work Phone: [facility] 07-08-2024 06:43-0400 Heart rate 77 /min DO Thalia Schwerer Work Phone: [facility] 07-08-2024 06:43-0400 SaO2% (BldA) [Mass fraction] 99 % DO Thalia Schwerer Work Phone: [facility] 07-08-2024 06:43-0400 Systolic blood pressure 130 mm[Hg] DO Thalia Schwerer Work Phone: [facility] 06-17-2024 07:56-0400 Body height 168.91 cm [facility] 06-17-2024 07:56-0400 Body mass index (BMI) [Ratio] 39.4 kg/m2 [facility] 06-17-2024 07:56-0400 Body weight 112.68 kg [facility] 06-17-2024 07:56-0400 Diastolic blood pressure 70 mm[Hg] [facility] 06-17-2024 07:56-0400 Heart rate 74 /min [facility] 06-17-2024 07:56-0400 Respiratory rate 16 /min [facility] 06-17-2024 07:56-0400 SaO2% (BldA) [Mass fraction] 99 % [facility] 06-17-2024 07:56-0400 Systolic blood pressure 124 mm[Hg] [facility] 05-27-2024 07:19-0400 Body height 169.55 cm [facility] 05-27-2024 07:19-0400 Body mass index (BMI) [Ratio] 39.3 kg/m2 [facility] 05-27-2024 07:19-0400 Body temperature 97.2 [degF] [facility] 05-27-2024 07:19-0400 Body weight 113 kg [facility] 05-27-2024 07:19-0400 Diastolic blood pressure 82 mm[Hg] [facility] 05-27-2024 07:19-0400 Heart rate 80 /min [facility] 05-27-2024 07:19-0400 SaO2% (BldA) [Mass fraction] 97 % [facility] 05-27-2024 07:19-0400 Systolic blood pressure 126 mm[Hg] [facility] 03-28-2024 16:27-0400 Body height 169.55 cm [facility] 03-28-2024 16:27-0400 Body mass index (BMI) [Ratio] 39.3 kg/m2 [facility] 03-28-2024 16:27-0400 Body temperature 97.8 [degF] [facility] 03-28-2024 16:27-0400 Body weight 113.08 kg [facility] 03-28-2024 16:27-0400 Diastolic blood pressure 80 mm[Hg] [facility] 03-28-2024 16:27-0400 Heart rate 76 /min [facility] 03-28-2024 16:27-0400 SaO2% (BldA) [Mass fraction] 99 % [facility] 03-28-2024 16:27-0400 Systolic blood pressure 120 mm[Hg] [facility] 02-05-2024 15:21-0400 Body height 169.55 cm [facility] 02-05-2024 15:21-0400 Body mass index (BMI) [Ratio] 39.4 kg/m2 [facility] 02-05-2024 15:21-0400 Body temperature 98 [degF] [facility] 02-05-2024 15:21-0400 Body weight 113.39 kg [facility] 02-05-2024 15:21-0400 Heart rate 84 /min [facility] 02-05-2024 15:21-0400 Respiratory rate 18 /min [facility] 02-05-2024 15:21-0400 SaO2% (BldA) [Mass fraction] 99 % [facility] 02-01-2024 09:48-0400 Body height 169.55 cm [facility] 02-01-2024 09:48-0400 Body mass index (BMI) [Ratio] 39.2 kg/m2 [facility] 02-01-2024 09:48-0400 Body temperature 98.1 [degF] [facility] 02-01-2024 09:48-0400 Body weight 112.94 kg [facility] 02-01-2024 09:48-0400 Diastolic blood pressure 76 mm[Hg] [facility] 02-01-2024 09:48-0400 Heart rate 101 /min [facility] 02-01-2024 09:48-0400 SaO2% (BldA) [Mass fraction] 96 % [facility] 02-01-2024 09:48-0400 Systolic blood pressure 102 mm[Hg] [facility] 12-04-2023 09:51-0500 Body height 169.55 cm [facility] 12-04-2023 09:51-0500 Body mass index (BMI) [Ratio] 38.3 kg/m2 [facility] 12-04-2023 09:51-0500 Body weight 110.22 kg [facility] 12-04-2023 09:51-0500 Diastolic blood pressure 70 mm[Hg] [facility] 12-04-2023 09:51-0500 Heart rate 86 /min [facility] 12-04-2023 09:51-0500 SaO2% (BldA) [Mass fraction] 99 % [facility] 12-04-2023 09:51-0500 Systolic blood pressure 104 mm[Hg] [facility] 09-25-2023 07:15-0500 Body height 169.55 cm Syeda Fitt Other [facility] 09-25-2023 07:15-0500 Body mass index (BMI) [Ratio] 37.98 kg/m2 Syeda Fitt Other [facility] 09-25-2023 07:15-0500 Body weight 109.18 kg Syeda Fitt Other [facility] 08-17-2023 14:45-0500 Body height 169.55 cm Autumn Missler Other [facility] Other 08-17-2023 14:45-0500 Body mass index (BMI) [Ratio] 37.5 kg/m2 Autumn Missler Other [facility] Other 08-17-2023 14:45-0500 Body weight 107.82 kg Autumn Missler Other [facility] Other 08-17-2023 14:45-0500 Diastolic blood pressure 78 mm[Hg] Autumn Missler Other [facility] 08-17-2023 14:45-0500 Respiratory rate 18 /min Autumn Missler Other [facility] Other 08-17-2023 14:45-0500 SaO2% (BldA) [Mass fraction] 100 % Autumn Missler Other [facility] 08-17-2023 14:45-0500 Systolic blood pressure 114 mm[Hg] Autumn Missler Other [facility] 07-06-2023 14:45-0400 Body height 169.55 cm Autumn Missler Other [facility] Other 07-06-2023 14:45-0400 Body mass index (BMI) [Ratio] 38.03 kg/m2 Autumn Missler Other [facility] Other 07-06-2023 14:45-0400 Body weight 109.32 kg Autumn Missler Other [facility] Other 07-06-2023 14:45-0400 Diastolic blood pressure 78 mm[Hg] Autumn Missler Other [facility] Other 07-06-2023 14:45-0400 Respiratory rate 20 /min Autumn Missler Other [facility] Other 07-06-2023 14:45-0400 SaO2% (BldA) [Mass fraction] 98 % Autumn Missler Other [facility] 07-06-2023 14:45-0400 Systolic blood pressure 116 mm[Hg] Autumn Missler Other [facility] Other 05-25-2023 14:30-0400 Body height 169.55 cm Autumn Missler Other [facility] Other 05-25-2023 14:30-0400 Body mass index (BMI) [Ratio] 39.02 kg/m2 Autumn Missler Other [facility] Other 05-25-2023 14:30-0400 Body weight 112.18 kg Autumn Missler Other [facility] Other 05-25-2023 14:30-0400 Diastolic blood pressure 82 mm[Hg] Autumn Missler Other [facility] Other 05-25-2023 14:30-0400 Respiratory rate 16 /min Autumn Missler Other [facility] Other 05-25-2023 14:30-0400 SaO2% (BldA) [Mass fraction] 99 % Autumn Missler Other [facility] Other 05-25-2023 14:30-0400 Systolic blood pressure 116 mm[Hg] Autumn Missler Other [facility] Other 04-27-2023 07:15-0400 Body height 169.55 cm Autumn Missler Other [facility] Other 04-27-2023 07:15-0400 Body mass index (BMI) [Ratio] 38.88 kg/m2 Autumn Missler Other [facility] Other 04-27-2023 07:15-0400 Body weight 111.77 kg Autumn Missler Other [facility] Other 04-27-2023 07:15-0400 Diastolic blood pressure 72 mm[Hg] Autumn Missler Other [facility] Other 04-27-2023 07:15-0400 Respiratory rate 16 /min Autumn Missler Other [facility] Other 04-27-2023 07:15-0400 SaO2% (BldA) [Mass fraction] 99 % Autumn Carreon Other [facility] Other 04-27-2023 07:15-0400 Systolic blood pressure 105 mm[Hg] Autumn Carreon Other [facility] Other 02-24-2023 16:00-0400 Body height 170.18 cm Willie Jacobs Other [facility] Other 02-24-2023 16:00-0400 Body mass index (BMI) [Ratio] 37.59 kg/m2 Willie Jacobs Other [facility] Other 02-24-2023 16:00-0400 Body weight 108.86 kg Willie Jacobs Other [facility] Other 02-24-2023 16:00-0400 Diastolic blood pressure 76 mm[Hg] Willie Jacobs Other [facility] Other 02-24-2023 16:00-0400 Respiratory rate 18 /min Willie Jacobs Other [facility] Other 02-24-2023 16:00-0400 SaO2% (BldA) [Mass fraction] 98 % Willie Jacobs Other [facility] Other 02-24-2023 16:00-0400 Systolic blood pressure 130 mm[Hg] Willie Jacobs Other [facility] Other 01-26-2023 17:47-0400 Body height 170.18 cm MD Eve Barton Work Phone: [facility] 01-26-2023 17:47-0400 Body temperature 98.2 [degF] MD Eve Barton Work Phone: [facility] 01-26-2023 17:47-0400 Body weight 109.55 kg MD Eve Barton Work Phone: [facility] 01-26-2023 17:47-0400 Diastolic blood pressure 85 mm[Hg] MD Eve Barton Work Phone: [facility] 01-26-2023 17:47-0400 Heart rate 81 /min MD Eve Barton Work Phone: [facility] 01-26-2023 17:47-0400 Respiratory rate 20 /min MD Eve Barton Work Phone: [facility] 01-26-2023 17:47-0400 SaO2% (BldA) [Mass fraction] 100 % MD Eve Barton Work Phone: [facility] 01-26-2023 17:47-0400 Systolic blood pressure 142 mm[Hg] MD Eve Barton Work Phone: [facility] 08-15-2022 15:50-0500 Body height 170.18 cm Mona Cueva Other [facility] Other 08-15-2022 15:50-0500 Body mass index (BMI) [Ratio] 33.98 kg/m2 Mona Cueva Other [facility] Other 08-15-2022 15:50-0500 Body temperature 97.8 [degF] Mona Cueva Other [facility] Other 08-15-2022 15:50-0500 Body weight 98.43 kg Mona Cueva Other [facility] Other 08-15-2022 15:50-0500 Diastolic blood pressure 73 mm[Hg] Mona Causey [facility] Other 08-15-2022 15:50-0500 Respiratory rate 18 /min Mona Cueva Other [facility] Other 08-15-2022 15:50-0500 SaO2% (BldA) [Mass fraction] 100 % Mona Cueva Other [facility] Other 08-15-2022 15:50-0500 Systolic blood pressure 116 mm[Hg] Mona Cueva Other [facility] Other Encounters Encounter Date Encounter Type Care Provider Facility Start: 08-20-2024 End: 08-20-2024 Office outpatient visit 25 minutes Zion Salazar [employer] Work Phone: [facility] Comment on above: Acute bronchitis, un specified organism (Primary Dx) Start: 08-20-2024 End: 08-20-2024 ambulatory ZION SALAZAR Not Available Start: 07-08-2024 End: 07-08-2024 ambulatory DO Thalia E Schwerer Work Phone: [facility] Work Phone: Start: 07-08-2024 End: 07-08-2024 Patient encounter procedure DO Thalia Schwerer Work Phone: [facility] Work Phone: Start: 06-17-2024 End: 06-17-2024 ambulatory DO Thalia E Schwerer Work Phone: [facility] Work Phone: Start: 06-17-2024 End: 06-17-2024 Patient encounter procedure [facility] [place] Work Phone: Start: 05-27-2024 End: 05-27-2024 ambulatory [facility] Work Phone: Start: 05-27-2024 End: 05-27-2024 Patient encounter procedure [facility] [place] Work Phone: Start: 03-28-2024 End: 03-28-2024 ambulatory [facility] Work Phone: Start: 03-28-2024 End: 03-28-2024 Patient encounter procedure [facility] [place] Work Phone: Start: 02-05-2024 End: 02-05-2024 ambulatory [facility] Work Phone: Start: 02-05-2024 End: 02-05-2024 Patient encounter procedure [facility] [place] Work Phone: Start: 02-01-2024 End: 02-01-2024 ambulatory [facility] Work Phone: Start: 02-01-2024 End: 02-01-2024 Patient encounter procedure [facility] [place] Work Phone: Start: 12-04-2023 End: 12-04-2023 Patient encounter procedure [facility] [place] Work Phone: Start: [facility] Init ial Provider Syeda Maldonado [facility] Start: 09-25-2023 Registered Recurring DO Willie Jacobs Work Phone: [facility] Work Phone: Start: 09-25-2023 End: 09-25-2023 Patient encounter procedure DO Willie Jacobs Work Phone: [facility] [place] Work Phone: Start: 09-25-2023 End: 09-25-2023 ambulatory DO Willie Jacobs Work Phone: [facility] Other Start: 09-22-2023 End: 09-22-2023 ambulatory Autumn Missler Other [facility] Other Start: 09-22-2023 Telephone encounter Autumn Missler [facility] Start: 09-07-2023 End: 09-07-2023 ambulatory Autumn Missler Other [facility] Other Start: 09-07-2023 Telephone encounter Autumn Missler [facility] Start: 08-17-2023 (FCCCWMNF/U) Weight Management f/u Autumn Missler [facility] Start: 08-17-2023 End: 08-17-2023 ambulatory Autumn Missler Other [facility] Other Start: 07-16-2023 End: 07-16-2023 ambulatory Autumn Missler Other [facility] Other Start: 07-16-2023 Telephone encounter Autumn Missler [facility] Start: 07-06-2023 (FCCCWMNF/U) Weight Management f/u Autumn Missler [facility] Start: 07-06-2023 End: 07-06-2023 ambulatory Autumn Missler Other [facility] Other Start: 05-26-2023 End: 05-26-2023 ambulatory Autumn Missler Other [facility] Other Start: 05-26-2023 Telephone encounter Autumn Missler [facility] Start: 05-25-2023 (FCCCWMNF/U) Weight Management f/u Autumn Missler [facility] Start: 05-25-2023 End: 05-25-2023 ambulatory Autumn Missler Other [facility] Other Start: 04-27-2023 End: 04-27-2023 ambulatory Autumn Carreon Other [facility] Other Start: 04-27-2023 Nutrition therapy Autumn Carreon [facility] Start: 04-27-2023 [facility]phone [facility] Start: 04-08-2023 End: 04-08-2023 ambulatory Syeda Maldonado Other [facility] Other Start: 04-08-2023 Telephone encounter Syeda Joel [facility] Start: 02-26-2023 End: 02-26-2023 ambulatory Willie Jacobs Other [facility] Other Start: 02-26-2023 Telephone encounter Willie Huber [facility] [place] Start: 02-25-2023 End: 02-25-2023 ambulatory MD Eve Barton Work Phone: [facility] Work Phone: Start: 02-25-2023 End: 02-25-2023 Patient encounter procedure MD Eve Barton Work Phone: [facility] [place] Work Phone: Start: 02-24-2023 End: 02-24-2023 ambulatory Willie Jacobs Other [facility] Other Start: 02-24-2023 Office outpatient vi sit 15 minutes Willie ANN [facility] [place] Start: 01-26-2023 End: 01-26-2023 Emergency department patient visit MD Eve Barton Work Phone: [facility] Work Phone: Start: 08-15-2022 End: 08-15-2022 Departed Referred MD Eve Barton Work Phone: [facility] [place] Start: 08-15-2022 End: 08-15-2022 ambulatory MD Eve Barton Work Phone: [facility] Work Phone: Start: 08-15-2022 Office outpatient vi sit 15 minutes Mona Cueva [facility] [place] Start: 05-09-2021 End: 05-10-2021 ambulatory FAHAD ANDRES Facility:[facility] Start: 11-09-2020 End: 11-09-[address] MELINDA WALTER Facility:[facility] Start: 11-07-2020 Encounter for preprocedural cardiovascular examination DR MELINDA WALTER [facility] Start: 11-07-2020 Encounter for preprocedural laboratory examination DR MELINDA WALTER [facility] Start: 11-06-[address] JENNIFER HOLLY Facility:[facility] Start: 11-02-2020 End: 11-03-[address] MELINDA WALTER Facility:[facility] Start: 11-02-2020 End: 11-03-2020 Encounter for preprocedural cardiovascular examination DR MELINDA WALTER Facility:[facility] Start: 10-27-2020 End: 10-28-[address] EVE BARTON Facility:[facility] Start: 10-03-2020 Encounter for gynecological examination (general) (routine) without abnormal findings DR MELINDA WALTER [facility] Start: 09-26-2020 End: 09-26-[address] MELINDA WALTER Facility:[facility] Start: 09-26-2020 End: 09-26-2020 Encounter for gynecological examination (general) (routine) without abnormal findings DR MELINDA WALTER Facility:[facility] Start: 07-02-2020 End: 07-03-[address] EVE BARTON Facility:[facility] Procedures Date Procedure Procedure Detail Performing Clinician Start: 01-26-2023 Diagnostic radiograp hy of nasal bones MD Eve Barton Work Phone: Plan of Treatment Date Care Activity Detail Author Start: 10-03-2024 End: 10-03-2024 Patient encounter procedure 10/03/2024 2:00 PM EST Office Visit [facility] [address] [place] [address] Melinda Walter, DO [address] [place] [address] [facility] Start: 05-29-2024 Influenza vaccination Influenza Vacc ine (#1) [facility] Start: 2023 Screening for malign ant neoplasm of cervix [facility] Start: 2014 Screening for malign ant neoplasm of cervix Pap Smear [facility] Bacteria identified in Urine by Culture Urine Culture [facility] Glucose measurement estimated from glycated hemoglobin [facility] Hemoglobin A1c/Hemoglobin.total in Blood [facility] Patient Education Minor Contusion ED [facility] Work Phone: Patient referral [facility] Work Phone: [facility] Immunizations Immunization Date Immunization Notes Care Provider Fa edilma 06-10-2022 influenza virus vacc ine, unspecified formulation Zion Salazar NP Work Phone: [facility] Payers Date Payer Category Payer Self-pay [id number] 2023 Private Health Insurance [employer] [id number] 1993 Unknown [id number] 1993 Unknown [id number] 1993 Unknown [id number] 593 1993 Unknown [id number] 593 1993 Unknown [id number] 593 1993 Unknown [id number] 593 1993 Unknown [id number] 593 1993 Unknown [id number]. 593 1993 Unknown [id number]. 1259 1959 Unknown [id number] 1959 Unknown [id number] Unknown [id number] 531 Unknown [id number] 531 Social History Date Type Detail Facility Unknown if ever smoked [facility] Work Phone: Start: 08-20-2024 Sex Assigned At N [facility] [email or web address] Other Start: 1995 Sex Assigned At Female [facility] Start: 01-26-2023 End: 08-20-2024 Tobacco smoking status IAIS Never smoked tobacco (finding) [facility] Start: 08-20-2024 Tobacco use and exposure Smokeless tobacco non-user [facility] Start: 08-20-2024 History of Social function [facility] Start: 1995 Sex assigned at Not on file [facility] Medical Equipment Procedure Code Equipment Code Equipment Origin al Text Equipment Identifier Dates [place] [id number] X 5 MM Start: 05-25-2023 Clinical Notes 10-29-2020 to 08-20-2024 Zion Salazar NP - 08/20/2024 9:15 AM EST Note Date & Type Note Facility 08-20-2024 History of Presen t illness Narrative [address], [address] [place], [address] P: [phone] F: [phone] HPI Historian of HPI: patient Princess Alvarado is a 28 y.o. female who presents today to the Urgent Care with the following complaints and denials which have been present for 3 day(s) pt denies any V/D/N at this time. C/O Denies Symptom Comments [] [x] Runny Nose [] [x] Difficulty Swallowing [] [x] Sore Throat Tenderness from coughing and drainage [x] [] Cough Wet cough, chest discomfort, wheezing [] [x] Ear Pain [] [x] Fever [] [x] Chills [] [x] Nasal Congestion [x] [] Myalgia [x] [] Sinus Pain Headache [] [x] Sinus Pressure Additional Comments: pt has taken mucinex DM and day quill OTC medication without relief Pt would like to see a provider before any testing. ROS A complete system ROS was performed and negative aside from the pertinent positives noted in the HPI and PE. IH Testing: PHYSICAL EXAM Examination General Examination: General Examination: alert, oriented, normal affect, well-appearing, in no acute distress, well developed, well nourished. Head: normocephalic, atraumatic Eyes: sclera non-icteric Ears: auditory canal clear, tympanic membrane intact, clear Nose: Slight congestion noted Oral Cavity: no lesions, mucosa moist Throat: PND present Neck/Thyroid: trachea midline Lymph Nodes: no cervical adenopathy Heart: no murmurs, regular rate and rhythm, S1, S2 normal Lungs: scant course BS. No wheezes, rales, rhonchi. Bronchospastic cough Extremities: no edema, no cyanosis Psych: alert, oriented, cognitive function intact, cooperative with exam. TREATMENT PLAN 1. Acute bronchitis, unspecified organism (Primary) Diagnosis and treatment discussed with patient. Immediate eval if new, worsening sx otherwise f/u with PCP if sx not resolved with course of atb, sooner if not improving over next 3-4 days. To ED for trouble swallowing secretions, shortness of breath, chest pain, or other red flag symptoms. Advised Pt on supportive therapies, including using a vaporizer/humidifer/steam from hot showers, lots of fluids as tolerated, rest, avoidance of second-hand smoke, frequent hand-washing w/ soap and water, and OTC ibuprofen or acetaminophen as directed prn for pain control - azithromycin (Zithromax) 250 MG tablet; Take 2 tabs (500 mg) by mouth today, than 1 tab (250 mg) daily for 4 days. Dispense: 6 tablet; Refill: 0 - benzonatate (Tessalon Perles) 100 MG capsule; Take 1 capsule (100 mg) by mouth 3 (three) times a day as needed for cough Do not crush or chew. Dispense: 21 capsule; Refill: 0 documented in this encounter [facility] 09-25-2023 Evaluation note Encounter Date Diagnosis Assessment Notes Aug, Obesity (ICD-10 - E66.9) Aug, BMI 37.0-37.9, adult (ICD-10 - Z68.37) Aug, Other Summary of Visit: (A) plate method (B) meal timing (C) encouraged family changes Patient set the following goals: Include a breakfast/midm orning snack Include more vegetables with meals [facility] Other 11-20-2023 Evaluation note* Encounter Date Diagnosis Assessment Notes Treatment Notes Treatment Clinical Notes Jul, Obesity (ICD-10 - E66.9) Patient is down 3.3 pounds since her last visit, down a total of 8.7 pounds since starting with us at the end of March. This equates to a 0.35% weight loss which has been resistance medication. Long discussion had treatment plan moving forward in addition to engaging with dietitian for meal prep and planning guidance and conscious efforts when it comes to food and beverages especially energy drinks. While it would have been ideal to have topiramate in addition to the phentermine this was not able to be achieved due to some pharmacy and insurance complications. We will try to resend in topiramate and okay for a name brand that is approved by patient's insurance. Continue metformin, add topiramate Patient is open to fasting labs prior to our follow-up visit in 4 to 6 weeks Labs were sent electronically to [facility] to assess electrolytes specifically potassium while on topiramate Continue to work with dietitian for meal prep and planning guidance with a priority to protein and vegetables. Okay with incorporating protein in the form of protein bars or shakes as a better option than skipping or relying on fast food however a better choice would be to work on 2-3 sections of the plate method for meals and snacks Jul, IFG (impaired fasting glucose) (ICD-10 - R73.01) Jul, Chronic fatigue (ICD-10 - R53.82) Jul, Anxiety (ICD-10 - F41.9) With her history of anxiety and panic attacks and nonresponse to phentermine may not be the best medication moving forward despite subjective help in decreasing appetite. She denies any mood disturbance or increase in anxiety since being on the lower dose of phentermine however she has not reached a weight loss of 5% in 3 months Jul, Depression (ICD-10 - F32.9) Jul, Acanthosis nigricans (ICD-10 - L83) Jul, GERD (gastroesophageal reflux disease) (ICD-10 - K21.9) Jul, Migraine (ICD-10 - G43.909) Jul, Panic attacks (ICD-10 - F41.0) Jul, Daytime sleepiness (ICD-10 - R40.0) Jul, Encounter for weight management (ICD-10 - Z76.89) [facility] Other 10-09-2023 Evaluation note* Encounter Date Diagnosis Assessment Notes Treatment Notes Treatment Clinical Notes Jun, Obesity (ICD-10 - E66.9) Patient has responded positively to the addition of phentermine over the last 6 weeks. She is down 6.3 pounds since her last visit down a total of 5.4 pounds with weight fluctuation since our start at the end of March. She denies any adverse side effects and has not affected her sleep or mood. She feels some positive benefit of improved appetite however has periods of still feeling hungry even with a full meal. We did a full review of her dietary intake for the last 24 hours revealing a lot of carbohydrate and sugar items which likely are not contributing to satiety. Reinforced focusing diet on protein as well as fiber and nutrient dense foods making small changes here and there to aid in sustainability. We discussed increasing physical activity consider something in the morning even waking up 15 minutes early to do 10-minute routine prior to getting kids up for school. This can help improve daytime fatigue. Praised her for decreasing her energy drink usage Continue metformin for now due to insulin resistance. Continue phentermine and topiramate. [place] and appropriate filled 05/28 and 06/29. Patient prefers generic versus namebrand Qsymia. Patient is responding, down just over 2% body weight loss in 6 weeks on phentermine alone, will reassess at 3-month timeframe at end of Jul. If adequate weight loss and improvement in overall insulin sensitivity could consider eliminating metformin. Continue to strengthen dietary choices incorporate protein first meal of the day avoid skipping breakfast during the week recommendations such as yogurt, boiled egg, egg bites etc. Encourage physical activity even 15 minutes can add up throughout the week and have significant health benefits as low align with weight loss goals Question against use of magnesium oxide on a daily basis due to lower calcium level at baseline. Explained that magnesium can compete with calcium. We did briefly discuss positive role of probiotics and supporting gut microbiome and overall digestion. Jun, IFG (impaired fasting glucose) (ICD-10 - R73.01) Jun, Chronic fatigue (ICD-10 - R53.82) Strongly encourage physical activity to help with her daytime fatigue. Reinforced that this does not have to be anything for more structured but does need to be some type of intentional movement at least 15 minutes a day Jun, Anxiety (ICD-10 - F41.9) Patient is aware of potential side effects associated with weight loss medication and is to inform provider of any changes in mood to appropriate changes or discontinuations can be made. Jun, Depression (ICD-10 - F32.9) Jun, Acanthosis nigricans (ICD-10 - L83) A decrease in overall carbohydrate and/or sugar intake would greatly improve insulin resistance, reinforced this today Jun, GERD (gastroesophage al reflux disease) (ICD-10 - K21.9) Jun, Migraine (ICD-10 - G43.909) Jun, Panic attacks (ICD-10 - F41.0) Jun, Daytime sleepiness (ICD-10 - R40.0) Jun, Encounter for weight management (ICD-10 - Z76.89) [facility] Other 08-29-2023 Evaluation note* Encounter Date Diagnosis Assessment Notes Treatment Notes Treatment Clinical Notes Apr, Other We had previous ly discussed adding phentermine to her current Metformin as an adjunct for weight loss. Risks and benefits of medication reviewed with patient as well as side effects. We discussed how phentermine is a controlled substance and is monitored. [place] was [place] and is appropriate. Patient has not been on phentermine product in the last 6 months. Inform provider of any intolerable side effects including but not limited to excessive jitteriness, insomnia, heart palpitations or severe mood disturbance. After patient provider discussion we are both comfortable with starting this medication with appropriate follow-up. Lower dose sent to pharmacy to assess tolerence the first month, then will consider increased dose at f/u as appropriate. [facility] Other 08-28-2023 Evaluation note* Encounter Date Diagnosis Assessment Notes Treatment Notes Treatment Clinical Notes Apr, Obesity (ICD-10 - E66.9) Patient has responded okay to metformin 500 mg 1 tab in the morning 1 tab in the evening. Does seem that she is getting some positive benefit of feeling little gomez faster and not starving as she previously did. She does have some minimal side effects of diarrhea and stomach upset but this does seem to have subsided since starting it. She is holding steady/up 0.9 pounds since our initial visit 4 weeks ago. Praised her for the small changes she has made so far including avoidance of the vending machine and prioritizing her meal prep and planning as well as giving up her energy drinks. Continue metformin 2 tabs daily okay to play with the timing of the medication to assess for better tolerance with the diarrhea. We will attempt coverage of liraglutide this was sent to pharmacy could pull back the metformin if this is covered. We discussed the influence of these medications on her impaired fasting glucose acanthosis nigricans and helping to improve her insulin sensitivity. If medication is cost prohibitive consider adding phentermine to her metformin for increased appetite suppression and weight loss. Reinforced small changes towards physical activity He also needs to reschedule with the dietitian as she missed due to schedule conflict. Apr, IFG (impaired fasting glucose) (ICD-10 - R73.01) Apr, Chronic fatigue (ICD-10 - R53.82) Patient's chronic fatigue again light likely multifactorial. Continue to control factors that she is able. Hopefully by eliminating the energy drinks and caffeine surges and crashes this will help to improve this. Reinforced physical activity is a great way to improve energy as well. Apr, Anxiety (ICD-10 - F41.9) Apr, Depression (ICD-10 - F32.9) Feels that her depression and anxiety is very well controlled with the current Lexapro as prescribed by her PCP. She denies any significant mood swings or severe depressive thoughts. Apr, Acanthosis nigricans (ICD-10 - L83) Apr, GERD (gastroesophageal reflux disease) (ICD-10 - K21.9) Apr, Migraine (ICD-10 - G43.909) Apr, Panic attacks (ICD-10 - F41.0) Apr, Daytime sleepiness (ICD-10 - R40.0) Apr, Encounter for weight management (ICD-10 - Z76.89) [facility] Other 07-31-2023 Evaluation note* Encounter Date Diagnosis Assessment Notes Treatment Notes Treatment Clinical Notes Mar, Obesity (ICD-10 - E66.9) Findings consistent with obesity. Patient understands that this increases risk of multiple comorbidities associated with weight gain especially if there is a genetic predisposition. Discussed the complexity behind obesity and its multifactorial causes including genetics, the biological changes that occur with processed foods as well as lack of physical activity. We will assess for underlying causes of abnormal weight gain including thyroid dysfunction, poor sleep, medications, diet, etc. Discussed importance of adopting a healthier lifestyle in order to decrease or eliminate risk of impending diseases associated with excessive weight. Initial goal of modest weight loss approximately 3 to 5% can help to improve risk factors and some comorbidities. Our second goal of 10 to 15% weight loss can result in even more potentially disease modifying, remission, or improved mortality benefits. Initial goals include prioritizing meal prep and planning and avoid vending machine as she is currently doing 1-2 times a day at work Engage in some type of physical activity to increase the heart rate with a small goal of 15 to 20 minutes 1 to 2 days a week to start and we will build up on this. Connect and engage with the dietitian for meal prep and planning guidance especially with to picky eater's in the household Praised her for giving up her soda habit for last several months. Cautioned her against the energy drinks even if they are sugar-free. After patient provider discussion we are both comfortable with initiating metformin. Consider Wegovy or Saxenda as covered by insurance. Diagnosis code was given to patient to call and have this conversation prior to our follow-up. Would use caution with any phentermine containing products just with her mood disturbance and history of anxiety and panic attacks Mar, IFG (impaired fasting glucose) (ICD-10 - R73.01) Patient understands that metabolic syndrome increases the risk of diabetes and heart disease. Treat with long-term healthy lifestyle changes including behavioral and nutritional changes, increase physical activity to achieve long-term weight loss goals. Mar, Chronic fatigue (ICD-10 - R53.82) Mar, Anxiety (ICD-10 - F41.9) Mar, Depression (ICD-10 - F32.9) Initial PHQ-9 is positive for mild depression with a score of 9 most notable for every day of little or no energy and appetite dysregulation. Patient states mood is stable overall today and denies any significant mood swings or depressive thoughts. Continued vigilance throughout our weight loss journey. Patient is to inform provider immediately if any extreme mood changes occur or severe depressive thoughts. Mood can play a role in eating habits, food choices and overall weight regulation. Mar, Acanthosis nigricans (ICD-10 - L83) We discussed the significance of this finding in office today and her insulin resistance that has been verified on labs Mar, GERD (gastroesophagea l reflux disease) (ICD-10 - K21.9) Patient does suffer from GERD likely related to/ exacerbated by increased weight. Treat with weight loss and dietary changes. With moderate weight loss patient could achieve complete relief from GERD symptoms due to increased intraabdominal pressure. Could consider goal of being weaned off of medication after consideration to any other underlying etiologies/treatment . Patient to work closely with dietitian to help make healthy dietary choices and avoid reflux- inducing foods. Briefly discussed these including avoiding citrus, high fat dairy, high fat meats and carbonated beverages, alcohol and coffee. Mar, Migraine (ICD-10 - G43.909) She states her migraines mainly affect her with weather changes not necessarily something that is chronic or an every day occurrence Mar, Panic attacks (ICD-10 - F41.0) Mar, Daytime sleepiness (ICD-10 - R40.0) Encouraged good sleep hygiene by going to bed at approximately similar times each night and similar waking hours each day. Encouraged to avoid excessive fluids and eating shortly before bed, turning off blue light on phone/computers, silencing notifications, etc. Fatigue during the day could also be related to poor dietary habits of high glucose or high carbohydrate meals and snacks. Increase water intake. Energy may also be improved by incorporating physical activity into daily routine. [facility] Other 05-30-2023 Evaluation note* Encounter Date Diagnosis Assessment Notes Treatment Notes Treatment Clinical Notes January, Chronic fatigue (ICD-10 - R53.82) After discussion, we will proceed with labs and call with the results. If she does have sleep apnea, we discussed that weight loss would likely dramatically improve her symptoms. We discussed the [facility] weight management clinic and she would like to proceed January, BMI 37.0-37.9, adult (ICD-10 - Z68.37) January, IFG (impaired fasting glucose) (ICD-10 - R73.01) She says on previous work labs, her fasting sugars are mildly elevated, we will check an A1c [facility] Other 11-18-2022 Evaluation note* Encounter Date Diagnosis Assessment Notes Treatment Notes Treatment Clinical Notes Jul, Dysuria (ICD-10 - R30.0) Jul, Acute cystitis with hematuria (ICD-10 - N30.01) Meds as prescribed. Push fluids. Urine sent for culture and pt will be notified of results if any change needs to be made. Advised good hygeine and no sexual activity while on meds. Pt to f/u as needed with pcp for persistent or recurrent sx. Immediate eval in ER for abdominal pain, severe back pain, N/V/D, fever/chills, or severe dehydration. Pt understood and agreed to teatment plan. [facility] Other [id number] NoteOPERATIVE NOTE OPERATION DATE: 11-09-20 ANESTHETIC:General. REGIONAL ECONOMIC LIAISON:None. PREOPERATIVE DIAGNOSIS:Menorrhagia. POSTOPERATIVE DIAGNOSIS:Menorrhagia. PROCEDURE NAME:Darlene endometrial ablation. BLOOD LOSS:5 mL. URINE OUTPUT: Yellow and clear. SPECIMENS:None. FINDINGS: Normal appearing cavity. No gross evidence of polyps, fibroids, or malignancy. PROCEDURE: The patient was taken back to the OR where she was prepped and draped in the normal sterile fashion after being placed in the dorsal lithotomy position, after being placed under general anesthesia without difficulty. A weighted speculum was placed in the patient's vagina, the anterior tip of the cervix was identified and grasped with a single tooth tenaculum. The patient was gently sounded to roughly 8 cm. The cervical length was noted to be 4 cm. The Darlene ablation apparatus was set to approximately 4 in length. This was placed in through the cervix and into the uterus. After the seal was tested, at that time the total ablation of 120 seconds was performed with the Darlene without difficulty. All instruments were removed from the vagina. [facility] Signed and Approved by: DR MELINDA WALTER . 11/13/2020 19:07:00[facility]02-01-2021 NoteChief Complaint Referral for urinary incontinence HPI Staff Pt is a referral for urinary incontinence by Dr. Walter. Pt states that after she had her 2nd child 9months ago she started experiencing the stress incontinence, urgency and some urge incontinence quite a bit more than ever before. PVR today is 21ml. Dysuria: no Incomplete bladder emptying: pt states that she feels she is emptying Hematuria: no Frequency: pt states that she is voiding about every 2 hours during the day Urgency: yes ongoing for about 9 months now Nocturia: 2x Stream: strong with no hesitancy or straining Leaking: no Post void dripping: no Wearing pads/ Depends: yes changes usually only 1x daily Urge incontinence: pt states that sometimes before she can even sit down on the toilet she has already started urinating Stress incontinence: coughing, sneezing and hard laughing causes leakage Incontinence without Sensory Awareness: no Abdominal pain: no Flank pain: pt states that if she holds her urine too long sometimes she will experience some rightsided flank pain ongoing for a couple months now Sexual complaints: no History of Present Illness I have reviewed and verified the staff HPI to be accurate for this encounter. I have reviewed the previous health record information and history for this patient from Dr. Liang There have been no associated fever, chills, flank pain, or blood in the urine. Denies any urinary infections since last encounter. Review of Systems PHQ Score Initial Depression Screen Score: 2 ROS - Provider Constitutional: denies weight loss, denies hot flashes. Eyes: denies eye problems. Gastrointestinal: denies nausea, denies vomiting. Cardiovascular: denies chest pain or angina. Integumentary: no dryness Musculoskeletal: denies musculoskeletal symptoms. ENMT: denies otolaryngeal symptoms. Respiratory: no shortness of breath. Heme/Lymph: denies easy bleeding tendency, denies easy bruising tendency. Psychiatric: no confusion, no anxiety. Genitourinary: denies vaginal discharge, denies incontinence, denies dysuria, denies hematuria, denies urinary frequency, denies amenorrhea, denies menorrhagia, denies abnormal bleeding, denies pelvic pain, denies genital sores, and denies decreased libido. Physical Exam Vitals & Measurements HR: 72(Peripheral) RR: 16 BP: 135/86 HT: 165 cm HT: 165.0 cm WT: 106 kg WT: 106.0 kg BMI: 38.93 General Appearance: alert , no acute distress, well nourished, well developed female. Head: normocephalic . Eyes: normal orbit and globe. ENMT: normal examination of external ears. Chest: Lungs CTA, respirations non labored . Cardiovascular: regular rate and rhythm. Abdomen: soft, non distended, no tenderness, no mass or organomegaly, no hernia. Genitourinary: bladder nonpalpable, no flank tenderness. Lymph Nodes: unremarkable palpation of the cervical area. Skin: warm, dry, no bruising. Psychiatric: cooperative, affect appropriate for age, normal judgement, euthymic mood. Assessment/Plan 1. Urge incontinence (N39.41: Urge incontinence) New patient referred by Dr. Walter. Patient has been experiencing more frequency with loss of control after 2nd child born 9 months prior. No witnessed blood. Stream is good. Denies infection. She wears padding once a day during work hours. No family hx of bladder cancer. No personal hx of kidney stone. Today's PVR is 21 ml. She has not tried any medications prior. Discussed treating urgency incontinence first. Will order Myrbetriq 50 mg once daily sent to [facility]. Discussed the medication sideeffects, and the patient will monitor closely for these, as well as for symptom improvement. If severe side effects occur, the medication should be stopped and the office notified. If insurance denies or cost is an issue, patient instructed to call office with a list of formulary drugs to try. Willsee patient back in 3 months. 2. Stress incontinence (N39.3: Stress incontinence (female) (male)) Patient states stress and urgency is equally bothersome for her. 3. Urinary complication (N99.89: Other postprocedural complications and disorders of genitourinary system) Today's UA is negative. Follow-up With When Contact Information Bryson LIANG MD In 3 months [facility] [address], [place] [address]- Additional Instructions: Patient Education Overactive Bladder, Adult I, Justine Dozier, personally scribed for Dr. Liang on 10/29/2020 11:41:29. . Documentation recorded by the scribe, Justine Dozier, accurately reflects the services(s) I performed and decisions made by me. Authenticated by Dr. Liang on 10/29/2020 11:45:40. Problem List/Past Medical History Ongoing Anxiety Stress incontinence Urge incontinence Historical No qualifying data Procedure/Surgical History Tubal ligation (02/24/2020), Tonsillectomy (05/2000). Medications buPROPion 150 m (more content not included)...[facility]:Result Comment: Electronically Signed By: Bryson LIANG MD\.br\Date and Time Signed: 10/29/20 11:45 EST\.br\Electronically Co-Signed By: Linda Dozier MA.martín\Date and Time Co-Signed: 10/29/20 11:41ESTEvaluation noteNo assessment information availableZanesville City Hospital Work Phone: evaluation noteNo InformationNortKaleida Health [facility] Other Evaluation note* Diagnosis Onset Date Resolution Status Migraine acute Acute maxillary sinusitis no neactive Otitis media, right noneacti ve [facility] Work Phone: Evaluation note* Diagnosis Onset Date Resolution Status Migraine acute Acute maxillary sinusitis no neactive Otitis media, right noneacti ve Right otitis media with effusion acute [facility] Work Phone: evaluation note* Diagnosis Onset Date Resolution Status Acute maxillary sinusitis no neactive Otitis media, right noneacti ve Candidal skin infection acut e Generalized anxiety disorder acute Moderate major depression ac [facility] Work Phone: evaluation note* Diagnosis Onset Date Resolution Status Candidal skin infection acut e Generalized anxiety disorder acute Moderate major depression ac [facility] Work Phone: Evaluation note* Diagnosis Onset Date Resolution Status Candidal skin infection acut e Generalized anxiety disorder acute Moderate major depression ac [place] Generalized anxiety disorder acute Moderate major depression ac [facility] adult acute Fatigue noneactive Dizziness noneactive [facility] Work Phone: Evaluation note* Diagnosis Onset Date Resolution Status Generalized anxiety disorder acute Moderate major depression ac [place] Well adult acute Fatigue noneactive Dizziness noneactive [facility] Work Phone: Evaluation note* Diagnosis Acute bronchitis, unspecified organism- Primary documented in this encounter [facility] N[facility]ative - Reported* Type Description Date Medical History Depression Medical History Anxiety Surgical History tubal ligation [facility] Other Hisviyg general Narrative - Reported* Type Description Date Medical History Depression Medical History Anxiety Medical History IFG Surgical History tubal ligation [facility] Other Histhqf general Narrative - Reported* Type Description Date Medical History Depression Medical History Anxiety Medical History IFG Medical History GERD Medical History [place] Medical History Migraine headache Medical History Panic attacks Surgical History tubal ligation Surgical History Tonsillectomy Surgical History [place] teeth extraction Surgical History Uterine ablation 2019 Hospitalization History See above [facility] Other Summary Purpose Family History Relationship Condition Age at Onset Recorded Date/T angel father Family history of mental disorder Unknown Hypertension Unknown Advance Directives Advance Directive Response Recorded Date/ Time Advance Directives No May 12:57pm Advance Directive Response Recorded Date/ Time Advance Directives No May 1:57pm Chief Complaint and Reason for Visit Chief Complaint Dysuria Chief Complaint nose injury R53.82 Chief Complaint E66.9;R73.01;R53.82 Obesity Chief Complaint migraines/upset stom ach ear and sinus infection Reason for Visit Migraine Acute maxillary sinusitis Otitis media, right Chief Complaint migraines/upset stom ach ear and sinus infection right ear infection Reason for Visit Migraine Acute maxillary sinusitis Otitis media, right Chief Complaint migraines/upset stom ach ear and sinus infection right ear infection Reason for Visit Migraine Acute maxillary sinusitis Otitis media, right Right otitis media with effusion Chief Complaint ear and sinus infect ion right ear infection get established Reason for Visit Acute maxillary sinu sitis Otitis media, right Candidal skin infection Generalized anxiety disorder Moderate major depression Chief Complaint get established awv Reason for Visit Candidal skin infect ion Generalized anxiety disorder Moderate major depression Chief Complaint get established awv [place] f/u dizzy Reason for Visit Candidal skin infect ion Generalized anxiety disorder Moderate major depression Generalized anxiety disorder Moderate major depression Well adult Fatigue Dizziness Chief Complaint get established awv [place] f/u dizzy F41.1 R42 R53.83 Reason for Visit Candidal skin infect ion Generalized anxiety disorder Moderate major depression Generalized anxiety disorder Moderate major depression Well adult Fatigue Dizziness Chief Complaint awv [place] f/u dizzy F41.1 R42 R53.83 6 wk follow up Reason for Visit Generalized anxiety disorder Moderate major depression Well adult Fatigue Dizziness Additional Source Comments INFORMATION SOURCE (unrecogn ized section and content) DATE CREATED AUTHOR 05/04/2021 [facility] DATE CREATED AUTHOR AUTHOR'S ORGANIZ ATION 05/28/2021 [facility] [place] [facility] DATE CREATED AUTHOR AUTHOR'S ORGANIZ ATION 06/20/2024 [facility] DATE CREATED AUTHOR AUTHOR'S ORGANIZ ATION 08/23/2024 [facility] EPIC REASON FOR VISIT (unrecogniz ed section and content) POSS UTIEST CARE, previously was seen by eve paez at [facility]. wants to talk about sleep apnea/thyroidNo InformationWMN WaitlistInitial WMNHM Metformin clarificationWMN f/uHM Victoza is not coveredWMN f/uHM Prior AuthWMN f/Ana InformationWMN initial RD appt. per [facility] Care Teams (unrecognized sec tion and content) Team Status: Active Member Role Status Dates Willie Jacobs DO Primary Care Provider Active Team Status: Inactive Member Role Status Dates Willie Jacobs DO Primary Care Provid er, Attending Provider Active Start: December 04, 2023 End: December 04, 2023 Team Status: Inactive Member Role Status Dates Willie Jacobs DO Primary Care Provid er, Attending Provider Active Start: February 01, 2024 End: February 01, 2024 Team Status: Active Member Role Status Olu Jacobs DO Primary Care Provider, Attending Provider Active Team Status: Inactive Member Role Status Olu Jacobs DO Primary Care Provider Active Autumn Carreon APRN Attending Provider Active Team Status: Inactive Member Role Status Dates Eve Barton MD Primary Care Provider Active Mona Cueva PA-C Attending Provider Active Team Status: Active Member Role Status Dates Eve Barton MD Primary Care Provider Active Team Status: Inactive Member Role Status Dates Eve Barton MD Primary Care Provider Active Travis Lebron PA-C Emergency Provider Active Team Status: Inactive Member Role Status Dates Willie Jacobs DO Primary Care Provider, Attending Provider Active Team Status: Inactive Member Role Status Dates Willie Jacobs DO Primary Care Provider Active Start: February 05, 2024 End: February 05, 2024 Cony Moreland APRN Attending Provider Active Start: February 05, 2024 End: February 05, 2024 Team Status: Inactive Member Role Status Dates Willie Jacobs DO Primary Care Provider Active Start: March 28, 2024 End: March 28, 2024 Thalia Brasher DO Attending Provider Active Start: March 28, 2024 End: March 28, 2024 Team Status: Active Member Role Status Dates Thalia Brasher DO Primary Care Provider Active Team Status: Inactive Member Role Status Dates Thalia Brasher DO Primary Care Pro vider, Attending Provider Active Start: May 27, 2024 End: May 27, 2024 Team Status: Inactive Member Role Status Dates Thalia Brasher DO Primary Care Provider Active Start: June 17, 2024 End: June 17, 2024 Vahe Velasquez APRN Attending Provider Active Start: June 17, 2024 End: June 17, 2024 Team Status: Inactive Member Role Status Dates Thalia Brasher DO Primary Care Pro vider, Attending Provider Active Start: July 08, 2024 End: July 08, 2024 [employer] Relationship Specialty Start Date End Date Eve Barton MD [address] [place] [address] PCP - General Family Medicine 02/05/23 Goals (unrecognized section and content) Goals may be documented in a n alternate section FOR RECORDS PERTAINING TO PATIENTS WHO ARE OR HAVE BEEN ENROLLED IN A CHEMICAL DEPENDENCY/SUBSTANCEABUSE PROGRAM, SOME INFORMATION MAY BE OMITTED. This clinical summary was aggregated from multiple sources. Caution should be exercised in using it in the provision of clinical care. This summary normalizes information from multiple sources, and as a consequence, information in this document may materially change the coding, format and clinical context of patient data. In addition, data may be omitted in some cases. CLINICAL DECISIONS SHOULD BE BASED ON THE PRIMARY CLINICAL RECORDS. [facility]. provides no warranty or guarantee of the accuracy or completeness of information in this document.
[2024-10-11 11:08] LABS: Age Gdln ACOG Testing Note (.); HPV Aptima Negative (Negative); IGP, Aptima HPV, rfx 16/18,45 Note (.)
== END 2024-10-06 20:06 | disposition home or self-care (01) ==
LOC: LAB 20:05
PROVIDERS: Visit Provider Physician Assistant
DX: Z01.419 Encounter for gynecological examination (general) (routine) without abnormal findings (principal); Z20.2 Contact with and (suspected) exposure to infections with a predominantly sexual mode of transmission; N89.8 Other specified noninflammatory disorders of vagina
CPT/HCPCS: 87624; 88175